=== PATIENT | male | born 1935 | race Caucasian/White ===

== ENCOUNTER 2020-04-13 13:06 | Emergency (ER) | payer MEDICARE, OTHER ==
[~2020-04-13] VITALS: Ht 172.7 cm; Wt 68.0 kg
--- OUTSIDE RECORDS SUMMARY | ~2020-04-13 | XMS | Encounter Summary ---
Demographics + + + | [address] | [address] | | | [place] [address] | + + + | Home Phone | | + + + | Preferred Language | Unknown | + + + | Marital Status | | + + + | Catholic Affiliation | 1027 | + + + | Race | Unknown | + + + | Ethnic Group | Unknown | + + + Author + + + | Author | [facility] | | | and [place] | + + + | Organization | [facility] | | | and [place] | + + + | Address | Unknown | + + + | Phone | Unavailable | + + + Support + + +---------+ + | Name | Relationship | Address | Phone | + + +---------+ + | Lilly Severe | ECON | Unknown | | + + +---------+ + Care Team Providers + +------+ + | Care Hood Maker Name | Role | Phone | + +------+ + PCP | Unavailable | + +------+ + Encounter Details +--------+ + + + + | Date | Type | Department | Care Team | Description | +--------+ + + + + | 11/12/ | Hospital | [facility] | Conversion | CORONARY ATHEROSCLER | | 2005 | Encounter | CONVERSION [address] | Transaction, | [address] | | | | [address] | Provider Unknown | | | | | [place] | [phone] | | | | | [address] | | | | | | [phone] | | | +--------+ + + + + Social History + +-------+ +--------+------+ | Tobacco Use | Types | Packs/Day | Years | Date | | | | | Used | | + +-------+ +--------+------+ | Never Assessed | | | | | + +-------+ +--------+------+ + + + | Sex Assigned at | Date Recorded | | | | + + + | Not on file | | + + + documented as of this encounter Plan of Treatment +--------+---------+ + + + | Date | Type | Specialty | Care Team | Description | +--------+---------+ + + + | 05/16/ | Office | Cardiology | Dina Butts DO | | | 2019 | Visit | | [address] | | | | | | [place] | | | | | | [address] | | | | | | | | +--------+---------+ + + + documented as of this encounter Visit Diagnoses + + | Diagnosis | + + | Coronary atherosclerosis of unspecified type of vessel, [place] or graft | + + documented in this encounter"
--- OUTSIDE RECORDS SUMMARY | ~2020-04-13 | XMS | Encounter Summary ---
Demographics + + + | [address] | [address] | | | [place] [address] | + + + | Home Phone | | + + + | Preferred Language | Unknown | + + + | Marital Status | | + + + | Congregational Affiliation | 1027 | + + + | Race | Unknown | + + + | Ethnic Group | Unknown | + + + Author + + + | Author | [facility] | | | and [place] | + + + | Organization | [facility] | | | and [place] | + + + | Address | Unknown | + + + | Phone | Unavailable | + + + Support + + +---------+ + | Name | Relationship | Address | Phone | + + +---------+ + | Lilly Masterson | ECON | Unknown | | + + +---------+ + Care Team Providers + +------+ + | Care [employer] Agriculture Teacher Name | Role | Phone | + +------+ + | Pollo Davis MD | PCP | | + +------+ + Encounter Details +--------+ + + + + | Date | Type | Department | Care Team | Description | +--------+ + + + + | 02/16/ | Orders Only | [facility] | Pollo Davis | | | 2016 | | [facility]IOLOGY [place] | MD [address] | | | | | [address] | [address] | | | | | [address] | [place] [address] | | | | | [place], [place] | [phone] | | | | | [address] | | | | | | [phone] | | | +--------+ + + + [...] | | | | | [place] | | | | | | [address] | | | | | | | | +--------+---------+ + + + documented as of this encounter Procedures + +--------+ + + + | Procedure Name | Priori | Date/Time | Associated Diagnosis | Comments | | | ty | | | | + +--------+ + + + | NM NUCLEAR STRESS | Routin | 02/17/2016 | | Results for this | | TEST (PHARMACOLOGIC | e | 4:49 PM | | procedure are in the | | - VASODILATOR) | | PDT | | results section. | + +--------+ + + + documented in this encounter Results NM Nuclear Stress Test (Vasodilator) (02/17/2016 4:49 PM PDT) + + | Specimen | + + | | + + + + + | Impressions | Performed At | + + + | 1. Normal perfusion study. No evidence of ischemia or | | | infarction. LVEF 66 % 2. Stress ECG: mildly positive for | | | Lexiscan-induced ischemia. 3. No arrhythmias detected. 4. No | | | Lexiscan induced chest pain. 5. No previous test for comparison. | | | 6. Low risk study. | | + + + + + + | Narrative | Performed At | + + + | [facility]ARD[facility] Nuclear Lexiscan-Walk Stress Test Test | | | Date: 02/17/2016 History: 80 Year old male being evaluated for | | | coronary artery disease. Rest Data: HR: 51 bpm BP: 130 /77 | | | Baseline ECG: Normal sinus rhythm. Stress Data: HR: 93 bpm BP: | | | 141/64 The patient walked on the treadmill for three minutes at 1.0 | | | mph during the test. Reaction to Lexiscan: shortness of breath | | | Stress ECG: mildly positive for Lexiscan-induced ischemia ischemia, | | | 1.[address] segment depression in leads II, III, aVF, V5, and | | | V6. Arrhythmias: none Myocardial Perfusion: Images are adequate | | | for interpretation. Small area, mild perfusion defect involving the | | | posterior basal segment on both the rest and stress images No | | | evidence of perfusion defect. SSS: 2 SRS: 4 SDS: 1 TID: 1.10 | | | Gated Images: Rest EDV: 97 mL Rest ESV: 35 mL Rest EF: 64 % Stress | | | EDV: 106 mL Stress ESV: 36 mL Stress EF: 66 % No evidence of regional | | | wall motion abnormality Procedure: 11.8 mCi of 99m Tc Myoview | | | was given intravenously for rest images. 32.2 mCi of 99m Tc Myoview | | | was given intravenously for stress images at 01:35. Effective Dose | | | Equivalent 15.2 mSv The patient received 0.4mg Lexiscan | | | intravenously. | | + + + + + | Procedure Note | + + | Dominic Greene Conversion - 06/08/2019 8:35 PM [facility] | | Lexiscan-Walk Stress Test Test Date: 02/17/2016 History:80 Year old male being evaluated | | for coronary artery disease. Rest Data:HR: 51 bpm BP: 130 /77Baseline ECG: Normal | | sinus rhythm. Stress Data:HR: 93 bpm BP: 141/64The patient walked on the treadmill for | | three minutes at 1.0 mph during the test.Reaction to Lexiscan: shortness of breathStress | | ECG: mildly positive for Lexiscan-induced ischemia ischemia, 1.[address] segment | | depression in leads II, III, aVF, V5, and V6.Arrhythmias: none Myocardial | | Perfusion:Images are adequate for interpretation.Small area, mild perfusion defect | | involving the posterior basal segment on both the rest and stress imagesNo evidence of | | perfusion defect.SSS: 2 SRS: 4 SDS: 1 TID: 1.10 Gated Images:Rest EDV: 97 mL Rest ESV: | | 35 mL Rest EF: 64 %Stress EDV: 106 mL Stress ESV: 36 mL Stress EF: 66 %No evidence of | | regional wall motion abnormality Procedure:11.8 mCi of 99m Tc Myoview was given | | intravenously for rest images.32.2 mCi of 99m Tc Myoview was given intravenously for | | stress images at 01:35.Effective Dose Equivalent 15.2 mSvThe patient received 0.4mg | | Lexiscan intravenously. IMPRESSION: 1. Normal perfusion study. No evidence of | | ischemia or infarction. LVEF 66 %2. Stress ECG: mildly positive for Lexiscan-induced | | ischemia.3. No arrhythmias detected.4. No Lexiscan induced chest pain.5. No previous | | test for comparison.6. Low risk study. Electronically signed by Prem Nichols DO on | | 02/22/2016 3:58 PM | |Myocardial Perfusion: | |Images are adequate for interpretation. | |Small area, mild perfusion defect involving the posterior basal segment on both the rest an d stress images | |No evidence of perfusion defect. | |SSS: 2 SRS: 4 SDS: 1 TID: 1.10 | | | |Gated Images: | |Rest EDV: 97 mL Rest ESV: 35 mL Rest EF: 64 % | |Stress EDV: 106 mL Stress ESV: 36 mL Stress EF: 66 % | |No evidence of regional wall motion abnormality | | | |Procedure: | |11.8 mCi of 99m Tc Myoview was given intravenously for rest images. | |32.2 mCi of 99m Tc Myoview was given intravenously for stress images at 01:35. | |Effective Dose Equivalent 15.2 mSv | |The patient received 0.4mg Lexiscan intravenously. | | | | | |IMPRESSION: | |1. Normal perfusion study. No evidence of ischemia or infarction. LVEF 66 % | |2. Stress ECG: mildly positive for Lexiscan-induced ischemia. | |3. No arrhythmias detected. | |4. No Lexiscan induced chest pain. | |5. No previous test for comparison. | |6. Low risk study. | | | | | | | | | + + documented in this encounter Visit Diagnoses Not on filedocumented in this encounter"
--- OUTSIDE RECORDS SUMMARY | ~2020-04-13 | XMS | Encounter Summary ---
Demographics + + + | Address | [address] | | | [place] [address] | + + + | Home Phone | | + + + | Preferred Language | Unknown | + + + | Marital Status | | + + + | Congregational Affiliation | 1027 | + + + | Race | Unknown | + + + | Ethnic Group | Unknown | + + + Author + + + | Author | [facility] | | | and [place] | + + + | Organization | [facility] | | | and [...] Team Providers + +------+ + | Care Combination Machine Tender Name | Role | Phone | + +------+ + PCP | Unavailable | + +------+ + Encounter Details +--------+ + + + + | Date | Type | Department | Care Team | Description | +--------+ + + + + | 08/23/ | Hospital | [facility] | Mariam Jackson MD | CHEST PAIN NOS | | 2002 - | Encounter | [facility] | [address] | | | | | [address] | [place] [address] | | | 08/28/ | | [address] [address] | [phone] | | | 2002 | | [place] | | | | | | [address] | | | | | | [phone] | | | +--------+ + + + [...] [address] | | | | | | [place] | | | | | | [address] | | | | | | | | +--------+---------+ + + + documented as of this encounter Visit Diagnoses + + | Diagnosis | + + | Chest pain, unspecified | + + documented in this encounter"
--- OUTSIDE RECORDS SUMMARY | ~2020-04-13 | XMS | Encounter Summary ---
Demographics + + + | Address | [address] | | | [place] [address] | + + + | Home Phone | | + + + | Preferred Language | Unknown | + + + | Marital Status | | + + + | Mormonism Affiliation | 1027 | + + + | Race | Unknown | + + + | Ethnic Group | Unknown | + + + Author + + + | Author | [facility] | | | and [place] | + + + | Organization | [facility] | | [...] Team Providers + +------+ + | Care Communications Consultant Name | Role | Phone | + +------+ + PCP | Unavailable | + +------+ + Encounter Details +--------+ + + + + | Date | Type | Department | Care Team | Description | +--------+ + + + + | 09/12/ | Hospital | [facility] OP | Conversion | | | 2002 | Encounter | CONVERSION [address] | Transaction, | | | | | [address] | Provider Unknown | | | | | [place], [place] | | | | | | [address] | (Fax) | | | | | [phone] | | | +--------+ + + + [...] | Dina Butts DO | | | 2020 | Visit | | [address] | | | | | | [place] | | | | | | [address] | | | | | | | | +--------+---------+ + + + documented as of this encounter Visit Diagnoses Not on filedocumented in this encounter"
--- OUTSIDE RECORDS SUMMARY | ~2020-04-13 | XMS | Encounter Summary ---
Demographics + + + | Address | [address] | | | [place] [address] | + + + | Home Phone | | + + + | Preferred Language | Unknown | + + + | Marital Status | | + + + | Anabaptist Affiliation | [id number] | + + + | Race | Unknown | + + + | Ethnic Group | Unknown | + + + Author + + + | Author | [facility] | | | and [place] | + + + | Organization | [facility] | | | [...] Team Providers + +------+ + | Care Bicycle I Assembler Name | Role | Phone | + +------+ + | Pollo Davis MD | PCP | | + +------+ + Reason for Visit + + + | Reason | Comments | + + + | New Patient | new patient | + + + Encounter Details +--------+---------+ + + + | Date | Type | Department | Care Team | Description | +--------+---------+ + + + | 11/16/ | Office | [facility] | Dina Butts DO | Coronary artery | | 2020 | Visit | CARDIOLOGY GEO | [address] | disease involving | | | | [address] | [place], [place] | [place] coronary | | | | [address] | [address] | artery of [place] | | | | [place] | | heart without angina | | | | [address] | | pectoris (Primary | | | | [phone] | | Dx); S/P CABG x 2 | +--------+---------+ + + + Social History + +-------+ +--------+------+ | Tobacco Use | Types | Packs/Day | Years | Date | | | | | Used | | + +-------+ +--------+------+ | Never Smoker | | | | | + +-------+ +--------+------+ + +---+---+---+ | Smokeless Tobacco: | | | | | Never Used | | | | + +---+---+---+ + + +---------+ + | Alcohol Use | Drinks/Week | oz/Week | Comments | + + +---------+ + | Not Currently | | | | + + +---------+ + + + + | Sex Assigned at | Date Recorded | | | | + + + | Not on file | | + + + documented as of this encounter Last Filed Vital Signs + + + + + | Vital Sign | Reading | Time Taken | Comments | + + + + + | Blood Pressure | 118/48 | 11/16/2019 9:54 AM | | | | | PST | | + + + + + | Pulse | 65 | 11/16/2019 9:54 AM | | | | | PST | | + + + + + | Temperature | - | - | | + + + + + | Respiratory Rate | - | - | | + + + + + | Oxygen Saturation | 98% | 11/16/2019 9:54 AM | | | | | PST | | + + + + + | Inhaled Oxygen | - | - | | | Concentration | | | | + + + + + | Weight | 64.9 kg (143 lb) | 11/16/2019 9:54 AM | | | | | PST | | + + + + + | Height | 172.7 cm (5' 8") | 11/16/2019 9:54 AM | | | | | PST | | + + + + + | Body Mass Index | 21.74 | 11/16/2019 9:54 AM | | | | | PST | | + + + + + documented in this encounter Progress Dina Riley DO - 11/16/2019 10:00 AM PST [facility] Cardiology Consult Note Reason for Consultation: establish care History Obtained From: patient HISTORY OF PRESENT ILLNESS: Cardiac Problem List CABGx2 in 2002 HTN HLD Mild carotid stenosis Moderate aortic stenosis Moderate right sided heart failure Non Cardiac Problem List The patient is an 84-year-old male, who presents to the Cardiology office to establish care for the above past medical histories. He had a recent echocardiogram done on 05/31/2019, w [facility] demonstrated a normal left ventricular ejection fraction with mild aortic regurgitation and moderate aortic stenosis, peak velocity was 2.9 meters per second, mean gradient was 20 mmHg. Recently, he has been doing well. His only complaint today is 5-pound unintentiona l weight loss over the past few months. He has decreased the number of times per day that kat roque eats and has been very physically active lately. He maintains his home and is able to cho p firewood. He is able to do all these activities without any chest pains or shortness of b reath. He denies any lower extremity swelling, orthopnea, PND. He denies any claudication- like symptoms. He denies any episodes of syncope or presyncope. His blood pressures appea r well controlled. He has not been on his atorvastatin for the past several months. He rep orts that he had a 3-month supply and his home medications ran out and he never wanted to ge t it refilled. He has been doing otherwise well from a cardiac standpoint. Review of Systems Constitutional: Negative for fatigue. Positive for unintentional weight loss. HENT: Negative for nosebleeds. Eyes: Negative for visual disturbance. Respiratory: Negative for cough and shortness of breath. Cardiovascular: see HPI Gastrointestinal: Negative for nausea, vomiting, abdominal pain and blood in stool. Genitourinary: Negative for hematuria or dysuria. Musculoskeletal: Negative for myalgias, back pain and arthralgias. Skin: Negative for color change. Neurological: Negative for dizziness, syncope and numbness. Hematological: Does not bruise/bleed easily. Psychiatric/Behavioral: The patient is not nervous/anxious. PAST MEDICAL & SURGICAL HISTORY Past Medical History: Diagnosis Date Angina pectoris (HCC) Arrhythmia Carotid stenosis, asymptomatic, bilateral 06/15/2019 Coronary artery disease Hyperlipidemia Hypertension goal BP (blood pressure) < 140/80 05/19/2018 Multiple food allergies Past Surgical History: Procedure Laterality Date ABDOMEN SURGERY APPENDECTOMY CARDIAC SURGERY double bypass COLONOSCOPY CORONARY ARTERY BYPASS GRAFT HERNIA REPAIR x 2, inguinal and abdominal KNEE SURGERY x2 NOSE SURGERY OTHER SURGICAL HISTORY UNLISTED PROCEDURE ARTHROSCOPY - LT. MEDICATIONS Home Medications Outpatient Encounter Medications as of 11/16/2019 Medication Sig Dispense Refill aspirin 81 MG tablet Take 81 mg by mouth daily. atorvaSTATin (LIPITOR) 20 mg tablet Take 20 mg by mouth Daily. Calcium Carb-Cholecalciferol (CALCIUM 1000 + D PO) Take 1,000 mg by mouth daily. CINNAMON PO Take 2 teaspoons by mouth daily. cyanocobalamin (VITAMIN B-12) 500 mcg tablet Take 500 mcg by mouth daily. (Patient debora gonzales differently: Take 50 mcg by mouth Daily.) isosorbide mononitrate (IMDUR) 30 mg ER tablet Take 1 tablet by mouth Daily. 90 tablet 3 loratadine (CLARITIN) 10 mg tablet Take 10 mg by mouth as needed. Magnesium 500 MG tablet Take 500 mg by mouth daily. Misc Natural Products (SA[place]) CAPS Take by mouth. (Patient taking differently: Take 1 capsule by mouth Daily.) Turmeric POWD Take by mouth. (Patient taking differently: Take 1 Dose by mouth Daily.) No facility-administered encounter medications on file as of 11/16/2019. Allergies Allergies Allergen Reactions Morphine Nausea And Vomiting FAMILY HISTORY Family History Problem Relation Age of Onset Other (see comment) Father Heart Problems Heart disease Father Other (see comment) Paternal Grandfather Heart Problems Cancer Sister Cancer Brother SOCIAL HISTORY Social History Socioeconomic History Marital status: Spouse name: Not on file Number of children: Not on file Years of education: Not on file Highest education level: Not on file Occupational History Not on file Social Needs Financial resource strain: Not on file Food insecurity: Worry: Not on file Inability: Not on file Transportation needs: Medical: Not on file Non-medical: Not on file Tobacco Use Smoking status: Never Smoker Smokeless tobacco: Never Used Substance and Sexual Activity Alcohol use: Not Currently Drug use: Never Comment: Drug use: No Sexual activity: Not on file Lifestyle Physical activity: Days per week: Not on file Minutes per session: Not on file Stress: Not on file Relationships Social connections: Talks on phone: Not on file Gets together: Not on file Attends muslim service: Not on file Active member of club or organization: Not on file Attends meetings of clubs or organizations: Not on file Relationship status: Not on file Intimate partner violence: Fear of current or ex partner: Not on file Emotionally abused: Not on file Physically abused: Not on file Forced sexual activity: Not on file Other Topics Concern Not on file Social History Narrative Not on file PHYSICAL EXAM Vital Signs: BP 118/48 | Pulse 65 | Ht 1.727 m (5' 8") | Wt 64.9 kg (143 lb) | SpO2 98% | BMI 21.74 kg/m Physical Exam GENERAL: Well developed, well nourished, in no distress. Appears approximately stated age . HEENT: Normocephalic, atraumatic. EYES: PERRL, sclerae anicteric, no xanthelsasmas NECK: No JVD, lymphadenopathy, thyromegaly, bruits. Carotid pulses are 2+ bilaterally LUNGS: Clear bilaterally, with no rales, rhonchi or wheezing noted, respirations unlabored HEART: Nondisplaced PMI, regular rate and rhythm, S1, S2 normal. Soft systolic murmur, rub s or gallops noted. ABDOMEN: Soft, nontender, no organomegaly, masses or bruits. Bowel sounds are normal in a ll 4 quadrants. EXTREMITIES: No edema. Radial pulses 2+ bilaterally. DP and PT pulses are 2+ bilaterally. SKIN: Warm and dry, capillary refill is normal, no lesions. NEUROLOGIC: Awake, alert and oriented x 3. No focal motor deficits. PSYCHIATRIC: Appropriate, affect appears normal DATA No results found for: WBC, HGB, HCT, PLTNo results found for: INR, PTT No results found for : NA, K, CL, CO2, BUN, CREA, GLUCOSE, MG, AST, ALT, DIGOXIN, BNP, TSHNo results found for: C HOL, TRIG, HDL, LDL, TSH Blood work from 07/06/2019 reviewed including total cholesterol 170, triglycerides 78, HDL 36, LDL 118, sodium 141, potassium 4.5, chloride 103, carbon dioxide 31, glucose 95, BUN 25, creatinine 1.13, calcium 9.1, AST 18, ALT 12, alkaline phosphatase 47, total bilirubin 0.4, total protein 6.6, albumin 4. Labs: 12/03: Lipids:( atorvastatin 20 mg) Triglycerides 48, cholesterol 116, HDL 36, LDL 71, VLDL 10, non-HDL cholesterol 81, ratio 2.3.. CMP:Glucose 97, sodium 143, potass ium 5, chloride 104, uric acid 5, BUN 19, creatinine 0.87, GFR 84. , Total bilirubin 0.6, direct bilirubin 0.1, indirect bilirubin 0.5, LD 155, AST 25, ALT 19, alk phos 53 albumin 4. 2Magnesium 2.1. Ferritin 228. Thyroid:TSH 1.88, free T4 1 0.08. CBC:WBC 6.5, RBC 4.9, hemoglobin 14.8, hematocrit 43.2, platelets 169 EK11/16/2019 normal sinus rhythm 65 bpm, first-degree AV block, PACs in a pattern of bige marvin, nonspecific ST-T wave abnormality. Last Echo: 05/31/19 CONCLUSIONS 1. Overall left ventricular systolic function is normal with, an EF between 55 - 60 %. 2. The right ventricle is normal in size and function. 3. There is mild aortic regurgitation. 4. There is moderate aortic stenosis present. Peak velocity 2.9 m/s, mean gradient 20mmHg. Last stress test: 02/17/16 IMPRESSION: 1. Normal perfusion study. No evidence of ischemia or infarction. LVEF 66 % 2. Stress ECG: mildly positive for Lexiscan-induced ischemia. 3. No arrhythmias detected. 4. No Lexiscan induced chest pain. 5. No previous test for comparison. 6. Low risk study. Last cath: Carotid US: 03/24. 1-15 % narrowing bilateral AAA screening: Lower extremity US: OTHERS: ASSESSMENT & PLAN 1. CAD s/p CABGx2 in 2002 2. HTN 3. HLD 4. Mild carotid stenosis 5. Moderate aortic stenosis 6. Moderate right sided heart failure -The patient is an 85-year-old male who presents to the cardiology office to establish care for the above past medical history. Recently, he has been doing well. He denies any angin al symptoms or heart failure symptoms. Recent echogram demonstrates preserved left ventricu lar function with moderate aortic stenosis. He will need yearly monitoring of his aortic va lve. - Continue ASA 81mg po daily - continue atorvastatin 20mg po daily - continue Imdur 30mg po daily - Follow up in 6 months Thank you for allowing me to participate in the care of this patient. Primary Care Physician: MD Dina Urena DO 11/17/2019 documented in this enco unter Plan of Treatment +--------+---------+ + + + | Date | Type | Specialty | Care Team | Description | +--------+---------+ + + + | 05/16/ | Office | Cardiology | Dina Butts DO | | | 2020 | Visit | | [address] | | | | | | [place] | | | | | | [id number] | | | | | | | | +--------+---------+ + + + documented as of this encounter Procedures + +--------+ + + + | Procedure Name | Priori | Date/Time | Associated Diagnosis | Comments | | | ty | | | | + +--------+ + + + | ECG 12 LEAD | Routin | 11/16/2019 | Coronary artery | Results for this | | | e | 9:58 AM | disease involving | procedure are in the | | | | PST | [place] coronary | results section. | | | | | artery of [place] | | | | | | heart without angina | | | | | | pectoris S/P CABG | | | | | | x 2 | | + +--------+ + + + documented in this encounter Results ECG 12 lead (11/16/2019 9:58 AM PST) + + + + + + | Component | Value | Ref Range | Performed | Pathologist | | | | | At | Signature | + + + + + + | VENTRICULAR | 65 | BPM | [facility] | | | RATE EKG | | | | | + + + + + + | ATRIAL RATE | 65 | BPM | [facility] | | + + + + + + | P-R | 270 | ms | [facility] | | | INTERVAL | | | | | + + + + + + | QRS | 88 | ms | [facility] | | | DURATION | | | | | + + + + + + | Q-T | 384 | ms | [facility] | | | INTERVAL | | | | | + + + + + + | Q-T | 399 | ms | [facility] | | | INTERVAL | | | | | | (CORRECTED) | | | | | + + + + + + | P WAVE AXIS | 86 | degrees | [facility] | | + + + + + + | QRS AXIS | 36 | degrees | [facility] | | + + + + + + | T AXIS | -24 | degrees | [facility] | | + + + + + + | INTERPRETAT | Sinus rhythm with 1st | | [facility] | | | ION TEXT | degree A-V block with | | | | | | Premature atrial | | | | | | complexes in a pattern | | | | | | of bigeminyST & T wave | | | | | | abnormality, consider | | | | | | inferior | | | | | | ischemiaAbnormal ECGWhen | | | | | | compared with ECG of | | | | | | 15-JUN-2019 | | | | | | 09:55,Previous ECG has | | | | | | undetermined rhythm, | | | | | | needs reviewBorderline | | | | | | criteria for Inferior | | | | | | infarct are no longer | | | | | | PresentConfirmed by VIKAS | | | | | | DINA BATRES ([id number]) on | | | | | | 11/17/2019 8:28:54 PM | | | | + + + + + + + + | Specimen | + + | | + + + + + | Narrative | Performed At | + + + | | | + + + + +---------+ + + | Performing | Address | City/State/Zipcode | Phone Number | | Organization | | | | + +---------+ + + | [facility] | | | | + +---------+ + + documented in this encounter Visit Diagnoses + + | Diagnosis | + + | Coronary artery disease involving [place] coronary artery of [place] heart without | | angina pectoris - Primary | + + | S/P CABG x 2 Postsurgical aortocoronary bypass status | + + documented in this encounter
--- OUTSIDE RECORDS SUMMARY | ~2020-04-13 | XMS | Encounter Summary ---
Demographics + + + | Address | [address] | | | [place] [address] | + + + | Home Phone | | + + + | Preferred Language | Unknown | + + + | Marital Status | | + + + | Denominational Affiliation | 1027 | + + + | Race | Unknown | + + + | Ethnic Group | Unknown | + + + Author + + + | Author | [facility] | | | and [place] | + + + | Organization | [facility] | | | [...] Team Providers + +------+ + | Care Rubber Goods Tester Water Name | Role | Phone | + +------+ + | Pollo Davis MD | PCP | | + +------+ + Encounter Details +--------+ + + + + | Date | Type | Department | Care Team | Description | +--------+ + + + + | 03/24/ | Orders Only | [facility] | Katia Mcbride | | | 2017 | | CONVERSION [address] | | | | | [address] | [address] | | | | | [place], [place] | [place] [address] | | | | | [address] | [phone] | | | | | [phone] | | | +--------+ + + + [...] [place] | | | | | | [address] | | | | | | | | +--------+---------+ + + + documented as of this encounter Procedures + +--------+ + + + | Procedure Name | Priori | Date/Time | Associated Diagnosis | Comments | | | ty | | | | + +--------+ + + + | ECHO INTERPRETATION | Routin | 03/24/2017 | | Results for this | | OF OUTSIDE FILMS | e | 4:00 PM | | procedure are in the | | | | PDT | | results section. | + +--------+ + + + documented in this encounter Results ECHO Interpretation of Outside Films (03/24/2017 4:00 PM PDT) + + | Specimen | + + | | + + + + + | Impressions | Performed At | + + + | 1. The left ventricle is normal in size, mild concentric hypertrophy | | | and normal systolic function EF 55-60%. 2. The diastolic filling | | | pattern indicates impaired relaxation consistent with mild dysfunction | | | (Grade I). 3. The right ventricle is severely enlarged with | | | moderately impaired systolic function. 4. The aortic valve is | | | severely calcified with severely restricted cups excursion and severe | | | aortic stenosis by planimetery and 2D images. Moderate by doppler | | | interrogation. 5. Mild tricuspid regurgitation with no pulmonary | | | hypertension. 6. There is no pericardial effusion. | | + + + + + + | Narrative | Performed At | + + + | Patient Name: Dain Coronado Date of : 1935 | | | Performing Physician: Sang Cruz | | | | | | INDICATIONS murmur, hx cad, cabg x2 2002 CONCLUSIONS | | | 1. The left ventricle is normal in size, mild | | | concentric hypertrophy and normal systolic function EF 55-60%. 2. The | | | diastolic filling pattern indicates impaired relaxation consistent | | | with mild dysfunction (Grade I). 3. The right ventricle is severely | | | enlarged with moderately impaired systolic function. 4. The aortic | | | valve is severely calcified with severely restricted cups excursion | | | and severe aortic stenosis by planimetery and 2D images. Moderate by | | | doppler interrogation. 5. Mild tricuspid regurgitation with no | | | pulmonary hypertension. 6. There is no pericardial effusion. | | | FINDINGS -------- ECG rhythm: Sinus rhythm. Study: A 2-dimensional | | | transthoracic echocardiogram with m-mode, spectral and color flow | | | Doppler was perfomed. Study: This was a technically adequate study. | | | Left Ventricle: Overall left ventricular systolic function is normal | | | with, an EF between 55 - 60 %. Left Ventricle: The left ventricle | | | cavity size is normal. Left Ventricle: There is mild concentric left | | | ventricular hypertrophy. Left Ventricle: The diastolic filling | | | pattern indicates impaired relaxation consistent with mild dysfunction | | | (Grade I). Right Ventricle: The right ventricle is severely | | | enlarged. Right Ventricle: The right ventricular systolic function is | | | moderately impaired. Left Atrium: The left atrium is moderately | | | dilated. Right Atrium: The right atrium is normal in size. Aortic | | | Valve: The aortic valve is severely calcified. Aortic Valve: There is | | | mild aortic regurgitation. Aortic Valve: The aortic pressure | | | half-time by doppler is 925ms. Aortic Valve: Moderate to severe | | | aortic stenosis with peak/mean pressure gradient of 20.86mmHg / | | | 11.88mmHg, the aortic valve area by continuity equation is | | | 1.1cm . Mitral Valve: There is trace mitral regurgitation. | | | Mitral Valve: Mild mitral annular calcification present. Tricuspid | | | Valve: The tricuspid valve appears structurally normal. Tricuspid | | | Valve: Mild tricuspid regurgitation present. Tricuspid Valve: There | | | is no evidence of pulmonary hypertension. Tricuspid Valve: The right | | | ventricular systolic pressure (pulmonary artery systolic pressure), as | | | measured by Doppler, is 16.64mmHg. Pulmonic Valve: Pulmonic valve | | | appears structurally normal. Pulmonic Valve: Trace pulmonic | | | regurgitation. Pericardium: There is no pericardial effusion. | | | Pericardium: No pleural effusion seen. IVC/Hepatic Veins: The | | | inferior vena cava is normal in size and collapses > 50 % with sniff, | | | indicating normal central venous pressures. Aorta: The aortic root, | | | ascending aorta are within normal dimensions. MEASUREMENTS | | | RA Area: 15.54 cm2 Ao sinus: 3.[address] | | | junct: 2.71 cm LA Major: 3.59 cm EDV(Teich): 97.80 ml | | | IVSd: 1.24 cm LVIDd: 4.60 cm LVPWd: 1.15 cm LVOT Area: | | | 3.16 cm2 LVOT Diam: 2.00 cm %FS: 39.40 % EF(Teich): 69.97 | | | % ESV(Teich): 29.36 ml LVIDs: 2.79 cm SV(Teich): 68.43 ml | | | LVEF MOD A2C: 50.21 % SV MOD A2C: 37.14 ml LVEF MOD A4C: | | | 57.98 % SV MOD A4C: 67.05 ml EF Biplane: 53.40 % LVEDV MOD | | | BP: 93.62 ml LVESV MOD BP: 43.61 ml LVEDV MOD A2C: 73.97 ml | | | LVLd A2C: 7.84 cm LVEDV MOD A4C: 115.64 ml LVLd A4C: 7.60 | | | cm LVESV MOD A2C: 36.82 ml LVLs A2C: 6.60 cm LVESV MOD A4C: | | | 48.58 ml LVLs A4C: 6.13 cm LAESV(A-L): 84.76 ml LAESV | | | Index (A-L): 46.57 ml/m2 LAAs A2C: 23.25 cm2 LAESV A-L A2C: | | | 86.09 ml LALs A2C: 5.33 cm LAAs A4C: 22.89 cm2 LAESV A-L | | | A4C: 78.23 ml LAESV MOD A4C: 65.37 ml LALs A4C: 5.69 cm | | | RAAs: 17.04 cm2 RAESV A-L: 57.02 ml RAESV MOD: 55.79 ml | | | RALs: 4.32 cm AR Dec [place]: 1.25 m/s2 AR Dec Time: 3191.21 | | | ms AR maxP.62 mmHg AR PHT: 925.45 ms AR Vmax: 4.01 | | | m/s HR: 61.81 BPM AV maxP.85 mmHg AV meanP.88 | | | mmHg AV Vmax: 2.28 m/s AV Vmean: 1.63 m/s AV VTI: 50.86 cm | | | LUIS Vmax: 1.09 cm2 LUIS (VTI): 1.08 cm2 AVAI Vmax: 0.00 | | | cm2/m2 AVAI (VTI): 0.00 cm2/m2 LVOT maxP.50 mmHg LVOT | | | meanP.20 mmHg LVSI Dopp: 96.80 ml/m2 LVSV Dopp: 55.17 | | | ml LVOT Vmax: 0.79 m/s LVOT Vmean: 0.51 m/s LVOT VTI: | | | 17.41 cm MV A Kahlil: 0.56 m/s MV DecT: 307.37 ms MV E Kahlil: | | | 0.54 m/s MV E/A Ratio: 0.96 MV PHT: 89.13 ms MVA By PHT: | | | 2.46 cm2 Septal e': 0.04 m/s Septal E/e': 11.16 Lateral e': | | | 0.06 m/s Lateral E/e': 7.98 RAP: 5 mmHg RVSP: 16.63 | | | mmHg TR maxP.63 mmHg TR Vmax: 1.70 m/s Business Account Executive: | | | DH Authenticated by: Sang Cruz Report Date/Time: 03-25-2017 | | | 19:11:08 | | + + + + + | Procedure Note | + + | Dominic Greene Conversion - 06/08/2019 6:45 PM PDT Patient Name: Jerri Coronado of | | : 1935 Performing Physician: Sang | | Ox[place] INDICATIONS------ | | -----murmur, hx cad, cabg x2 2002 CONCLUSIONS 1. The left ventricle is normal | | in size, mild concentric hypertrophy and normal systolic function EF 55-60%.2. The | | diastolic filling pattern indicates impaired relaxation consistent with mild dysfunction | | (Grade I).3. The right ventricle is severely enlarged with moderately impaired systolic | | function.4. The aortic valve is severely calcified with severely restricted cups | | excursion and severe aortic stenosis by planimetery and 2D images. Moderate by doppler | | interrogation.5. Mild tricuspid regurgitation with no pulmonary hypertension.6. There is | | no pericardial effusion. FINDINGS--------ECG rhythm: Sinus rhythm.Study: A | | 2-dimensional transthoracic echocardiogram with m-mode, spectral and color flow Doppler | | was perfomed.Study: This was a technically adequate study.Left Ventricle: Overall left | | ventricular systolic function is normal with, an EF between 55 - 60 %.Left Ventricle: | | The left ventricle cavity size is normal.Left Ventricle: There is mild concentric left | | ventricular hypertrophy.Left Ventricle: The diastolic filling pattern indicates impaired | | relaxation consistent with mild dysfunction (Grade I).Right Ventricle: The right | | ventricle is severely enlarged.Right Ventricle: The right ventricular systolic function | | is moderately impaired.Left Atrium: The left atrium is moderately dilated.Right Atrium: | | The right atrium is normal in size.Aortic Valve: The aortic valve is severely | | calcified.Aortic Valve: There is mild aortic regurgitation.Aortic Valve: The aortic | | pressure half-time by doppler is 925ms.Aortic Valve: Moderate to severe aortic stenosis | | with peak/mean pressure gradient of 20.86mmHg / 11.88mmHg, the aortic valve area by | | continuity equation is 1.1cm .Mitral Valve: There is trace mitral | | regurgitation.Mitral Valve: Mild mitral annular calcification present.Tricuspid Valve: | | The tricuspid valve appears structurally normal.Tricuspid Valve: Mild tricuspid | | regurgitation present.Tricuspid Valve: There is no evidence of pulmonary | | hypertension.Tricuspid Valve: The right ventricular systolic pressure (pulmonary artery | | systolic pressure), as measured by Doppler, is 16.64mmHg.Pulmonic Valve: Pulmonic valve | | appears structurally normal.Pulmonic Valve: Trace pulmonic regurgitation.Pericardium: | | There is no pericardial effusion.Pericardium: No pleural effusion seen.IVC/Hepatic | | Veins: The inferior vena cava is normal in size and collapses > 50 % with sniff, | | indicating normal central venous pressures.Aorta: The aortic root, ascending aorta are | | within normal dimensions. MEASUREMENTS RA Area: 15.54 cm2Ao sinus: 3.36 | | cmAo st junct: 2.71 cmLA Major: 3.59 cmEDV(Teich): 97.80 mlIVSd: 1.24 cmLVIDd: | | 4.60 cmLVPWd: 1.15 cmLVOT Area: 3.16 [id number] Diam: 2.00 cm%FS: 39.40 | | %EF(Teich): 69.97 %ESV(Teich): 29.36 mlLVIDs: 2.79 cmSV(Teich): 68.43 mlLVEF MOD | | A2C: 50.21 %SV MOD A2C: 37.14 mlLVEF MOD A4C: 57.98 %SV MOD A4C: 67.05 mlEF | | Biplane: 53.40 %LVEDV MOD BP: 93.62 mlLVESV MOD BP: 43.61 mlLVEDV MOD A2C: 73.97 | | mlLVLd A2C: 7.84 cmLVEDV MOD A4C: 115.64 mlLVLd A4C: 7.60 cmLVESV MOD A2C: | | 36.82 mlLVLs A2C: 6.60 cmLVESV MOD A4C: 48.58 mlLVLs A4C: 6.13 cmLAESV(A-L): | | 84.76 mlLAESV Index (A-L): 46.57 ml/m2LAAs A2C: 23.25 [id number] A-L A2C: 86.09 | | mlLALs A2C: 5.33 cmLAAs A4C: 22.89 [id number] A-L A4C: 78.23 mlLAESV MOD A4C: | | 65.37 mlLALs A4C: 5.69 cmRAAs: 17.04 [id number] A-L: 57.02 mlRAESV MOD: 55.79 | | mlRALs: 4.32 cmAR Dec [place]: 1.25 m/s2AR Dec Time: 3191.21 msAR maxP.62 | | mmHgAR PHT: 925.45 msAR Vmax: 4.01 m/sHR: 61.81 BPMAV maxP.85 mmHgAV | | meanP.88 mmHgAV Vmax: 2.28 m/Ralph Vmean: 1.63 m/Ralph VTI: 50.86 cmAVA Vmax: | | 1.09 cm2AVA (VTI): 1.08 [id number] Vmax: 0.00 cm2/m2AVAI (VTI): 0.00 cm2/m2LVOT | | maxP.50 mmHgLVOT meanP.20 mmHgLVSI Dopp: 96.80 ml/m2LVSV Dopp: 55.17 | | mlLVOT Vmax: 0.79 m/sLVOT Vmean: 0.51 m/sLVOT VTI: 17.41 cmMV A Kahlil: 0.56 m/sMV | | DecT: 307.37 msMV E Kahlil: 0.54 m/sMV E/A Ratio: 0.96MV PHT: 89.13 msMVA By PHT: | | 2.46 [id number] e': 0.04 m/sSeptal E/e': 11.16Lateral e': 0.06 m/sLateral E/e': | | 7.98RAP: 5 mmHgRVSP: 16.63 mmHgTR maxP.63 mmHgTR Vmax: 1.70 m/s | | Business Account Executive: JEFERSONuthenticated by: Sang Jaeger Date/Time: 03-25-2017 19:11:08 | | IMPRESSION: 1. The left ventricle is normal in size, mild concentric hypertrophy and | | normal systolic function EF 55-60%.2. The diastolic filling pattern indicates impaired | | relaxation consistent with mild dysfunction (Grade I).3. The right ventricle is severely | | enlarged with moderately impaired systolic function.4. The aortic valve is severely | | calcified with severely restricted cups excursion and severe aortic stenosis by | | planimetery and 2D images. Moderate by doppler interrogation.5. Mild tricuspid | | regurgitation with no pulmonary hypertension.6. There is no pericardial effusion. | |LVOT Area: 3.16 cm2 | |LVOT Diam: 2.00 cm | |%FS: 39.40 % | |EF(Teich): 69.97 % | |ESV(Teich): 29.36 ml | |LVIDs: 2.79 cm | |SV(Teich): 68.43 ml | |LVEF MOD A2C: 50.21 % | |SV MOD A2C: 37.14 ml | |LVEF MOD A4C: 57.98 % | |SV MOD A4C: 67.05 ml | |EF Biplane: 53.40 % | |LVEDV MOD BP: 93.62 ml | |LVESV MOD BP: 43.61 ml | |LVEDV MOD A2C: 73.97 ml | |LVLd A2C: 7.84 cm | |LVEDV MOD A4C: 115.64 ml | |LVLd A4C: 7.60 cm | |LVESV MOD A2C: 36.82 ml | |LVLs A2C: 6.60 cm | |LVESV MOD A4C: 48.58 ml | |LVLs A4C: 6.13 cm | |LAESV(A-L): 84.76 ml | |LAESV Index (A-L): 46.57 ml/m2 | |LAAs A2C: 23.25 cm2 | |LAESV A-L A2C: 86.09 ml | |LALs A2C: 5.33 cm | |LAAs A4C: 22.89 cm2 | |LAESV A-L A4C: 78.23 ml | |LAESV MOD A4C: 65.37 ml | |LALs A4C: 5.69 cm | |RAAs: 17.04 cm2 | |RAESV A-L: 57.02 ml | |RAESV MOD: 55.79 ml | |RALs: 4.32 cm | |AR Dec [place]: 1.25 m/s2 | |AR Dec Time: 3191.21 ms | |AR maxP.62 mmHg | |AR PHT: 925.45 ms | |AR Vmax: 4.01 m/s | |HR: 61.81 BPM | |AV maxP.85 mmHg | |AV meanP.88 mmHg | |AV Vmax: 2.28 m/s | |AV Vmean: 1.63 m/s | |AV VTI: 50.86 cm | |LUIS Vmax: 1.09 cm2 | |LUIS (VTI): 1.08 cm2 | |AVAI Vmax: 0.00 cm2/m2 | |AVAI (VTI): 0.00 cm2/m2 | |LVOT maxP.50 mmHg | |LVOT meanP.20 mmHg | |LVSI Dopp: 96.80 ml/m2 | |LVSV Dopp: 55.17 ml | |LVOT Vmax: 0.79 m/s | |LVOT Vmean: 0.51 m/s | |LVOT VTI: 17.41 cm | |MV A Kahlil: 0.56 m/s | |MV DecT: 307.37 ms | |MV E Kahlil: 0.54 m/s | |MV E/A Ratio: 0.96 | |MV PHT: 89.13 ms | |MVA By PHT: 2.46 cm2 | |Septal e': 0.04 m/s | |Septal E/e': 11.16 | |Lateral e': 0.06 m/s | |Lateral E/e': 7.98 | |RAP: 5 mmHg | |RVSP: 16.63 mmHg | |TR maxP.63 mmHg | |TR Vmax: 1.70 m/s | | | |Business Account Executive: KALEB | |Authenticated by: Sang Cruz | |Report Date/Time: 03-25-2017 19:11:08 | | | |IMPRESSION: | |1. The left ventricle is normal in size, mild concentric hypertrophy and normal systolic fu nction EF 55-60%. | |2. The diastolic filling pattern indicates impaired relaxation consistent with mild dysfunc tion (Grade I). | |3. The right ventricle is severely enlarged with moderately impaired systolic function. | |4. The aortic valve is severely calcified with severely restricted cups excursion and sever e aortic stenosis by planimetery and 2D images. Moderate by doppler interrogation. | |5. Mild tricuspid regurgitation with no pulmonary hypertension. | |6. There is no pericardial effusion. | + + documented in this encounter Visit Diagnoses Not on filedocumented in this encounter"
--- OUTSIDE RECORDS SUMMARY | ~2020-04-13 | XMS | Encounter Summary ---
Demographics + + + | Address | [address] | | | [place] [address] | + + + | Home Phone | | + + + | Preferred Language | Unknown | + + + | Marital Status | | + + + | Mu-Ism Affiliation | 1027 | + + + | Race | Unknown | + + + | Ethnic Group | Unknown | + + + Author + + + | Author | [facility] | | | and [place] | + + + | Organization | [facility] | | | and [place] | + + + | Address | Unknown | + + + | Phone | Unavailable | + + + Support + + +---------+ + | Name | Relationship | Address | Phone | + + +---------+ + | iLlly Masterson | ECON | Unknown | | + + +---------+ + Care Team Providers + +------+ + | Care Exchange Clerk Name | Role | Phone | + +------+ + | Pollo Davis MD | PCP | | + +------+ + Encounter Details +--------+ + + + + | Date | Type | Department | Care Team | Description | +--------+ + + + + | 11/29/ | Orders Only | [facility] | Conversion | | | 2018 | | CONVERSION [address] | Transaction, | | | | | [address] | Provider Unknown | | | | | [facility] [place] | [phone] | | | | | [address] | | | | | | [phone] | | | +--------+ + + + [...] [place] | | | | | | [id number] | | | | | | | | +--------+---------+ + + + documented as of this encounter Visit Diagnoses Not on filedocumented in this encounter"
--- OUTSIDE RECORDS SUMMARY | ~2020-04-13 | XMS | Encounter Summary ---
Demographics + + + | Address | [address] | | | [place] [address] | + + + | Home Phone | | + + + | Preferred Language | Unknown | + + + | Marital Status | | + + + | Orthodox Affiliation | 1027 | + + + | Race | Unknown | + + + | Ethnic Group | Unknown | + + + Author + + + | Author | [facility] | | | and [place] | + + + | Organization | [facility] | | [...] Team Providers + +------+ + | Care Marketing Agent Name | Role | Phone | + +------+ + | Pollo Davis MD | PCP | | + +------+ + Encounter Details +--------+ + + + + | Date | Type | Department | Care Team | Description | +--------+ + + + + | 05/31/ | Orders Only | [facility] | Katia Mcbride | | | 2019 | | [address] | | | | | [address] | [address] | | | | | [place], [place] | [place] [address] | | | | | [id number] | [phone] | | | | | [phone] | | | +--------+ + + + [...] [facility]UD | | | | | | [id number] | | | | | | | | +--------+---------+ + + + documented as of this encounter Procedures + +--------+ + + + | Procedure Name | Priori | Date/Time | Associated Diagnosis | Comments | | | ty | | | | + +--------+ + + + | ECHO INTERPRETATION | Routin | 05/31/2019 | | Results for this | | OF OUTSIDE FILMS | e | 3:43 PM | | procedure are in the | | | | PDT | | results section. | + +--------+ + + + documented in this encounter Results ECHO Interpretation of Outside Films (05/31/2019 3:43 PM PDT) + + | Specimen | + + | | + + + + + | Impressions | Performed At | + + + | 1. Overall left ventricular systolic function is normal with, an EF | | | between 55 - 60 %. 2. The right ventricle is normal in size and | | | function. 3. There is mild aortic regurgitation. 4. There is | | | moderate aortic stenosis present. Peak velocity 2.9 m/s, mean gradient | | | 20mmHg. | | + + + + + + | Narrative | Performed At | + + + | Patient Name: Dain Coronado Date of : 1935 | | | Performing Physician: Dina Butts MD | | | | | | INDICATIONS HX CAD S/P CABG X2, AORTIC STENOSIS | | | CONCLUSIONS 1. Overall left ventricular systolic | | | function is normal with, an EF between 55 - 60 %. 2. The right | | | ventricle is normal in size and function. 3. There is mild aortic | | | regurgitation. 4. There is moderate aortic stenosis present. Peak | | | velocity 2.9 m/s, mean gradient 20mmHg. FINDINGS -------- ECG | | | rhythm: Sinus rhythm. Study: A 2-dimensional transthoracic | | | echocardiogram with m-mode, spectral and color flow Doppler was | | | perfomed. Study: This was a technically adequate study. Left | | | Ventricle: Overall left ventricular systolic function is normal with, | | | an EF between 55 - 60 %. Left Ventricle: The left ventricle cavity | | | size is normal. Left Ventricle: Left ventricular wall thickness is | | | normal. Left Ventricle: The diastolic filling pattern indicates | | | impaired relaxation consistent with mild dysfunction (Grade I). Right | | | Ventricle: The right ventricle is normal in size and function. Left | | | Atrium: The left atrium is normal in size. Right Atrium: The right | | | atrium is normal in size. Aortic Valve: There is mild aortic | | | regurgitation. Aortic Valve: The aortic pressure half-time by doppler | | | is 672ms. Aortic Valve: The aortic valve is severely calcified. | | | Aortic Valve: There is moderate aortic stenosis present. Mitral | | | Valve: Normal appearing mitral valve. Mitral Valve: Mild mitral | | | regurgitation is present. Tricuspid Valve: The tricuspid valve | | | appears structurally normal. Tricuspid Valve: Mild tricuspid | | | regurgitation present. Tricuspid Valve: The right ventricular | | | systolic pressure (pulmonary artery systolic pressure), as measured by | | | Doppler, is 17.17mmHg. Pulmonic Valve: Pulmonic valve appears | | | structurally normal. Pulmonic Valve: Mild pulmonic regurgitation. | | | Pericardium: There is no pericardial effusion. IVC/Hepatic Veins: The | | | inferior vena cava is normal in size and collapses > 50 % with sniff, | | | indicating normal central venous pressures. Aorta: The aortic root, | | | ascending aorta and aortic arch are normal. Mass: No mass visualized | | | Thrombus: No clot visualized Thrombus: No vegetation visualized. | | | Septum: No ASD observed. Septum: No VSD observed. MEASUREMENTS | | | Ao asc: 3.26 cm Ao sinus: 3.[address] junct: | | | 2.67 cm IVC: 1.44 cm EDV(Teich): 95.20 ml IVSd: 0.94 cm | | | LVIDd: 4.55 cm LVPWd: 0.96 cm LVOT Area: 3.34 cm2 LVOT | | | Diam: 2.06 cm %FS: 32.33 % EF(Teich): 60.69 % ESV(Teich): | | | 37.42 ml LVIDs: 3.08 cm SV(Teich): 57.78 ml RV Major: | | | 6.43 cm RV Minor: 2.85 cm LVEF MOD A2C: 51.62 % SV MOD A2C: | | | 42.48 ml LVEF MOD A4C: 57.87 % SV MOD A4C: 57.58 ml EF | | | Biplane: 54.15 % LVEDV MOD BP: 89.69 ml LVESV MOD BP: 41.12 | | | ml LVEDV MOD A2C: 82.28 ml LVLd A2C: 8.03 cm LVEDV MOD A4C: | | | 99.51 ml LVLd A4C: 8.14 cm LVESV MOD A2C: 39.80 ml LVLs | | | A2C: 6.63 cm LVESV MOD A4C: 41.92 ml LVLs A4C: 6.33 cm | | | LAESV(A-L): 48.12 ml LAESV Index (A-L): 26.15 ml/m2 LAAs A2C: | | | 19.09 cm2 LAESV A-L A2C: 62.13 ml LALs A2C: 4.97 cm LAAs | | | A4C: 14.00 cm2 LAESV A-L A4C: 35.28 ml LALs A4C: 4.71 cm | | | RAAs: 17.51 cm2 RAESV A-L: 59.15 ml RAESV MOD: 53.80 ml | | | RALs: 4.39 cm TAPSE: 1.76 cm AR Dec Sawyer: 1.86 m/s2 AR | | | Dec Time: 2318.95 ms AR maxP.11 mmHg AR PHT: 672.49 ms | | | AR Vmax: 4.33 m/s AV maxP.55 mmHg AV meanP.16 | | | mmHg AV Vmax: 2.85 m/s AV Vmean: 2.16 m/s AV VTI: 68.66 cm | | | LUIS Vmax: 1.08 cm2 LUIS (VTI): 1.01 cm2 AVAI (Vmax): 0.00 | | | cm2/m2 AVAI (VTI): 0.00 cm2/m2 LVOT maxP.39 mmHg LVOT | | | meanP.74 mmHg LVSI Dopp: 37.94 ml/m2 LVSV Dopp: 69.81 | | | ml LVOT Vmax: 0.92 m/s LVOT Vmean: 0.60 m/s LVOT VTI: | | | 20.84 cm MV A Kahlil: 0.69 m/s MV Dec Sawyer: 1.62 m/s2 MV DecT: | | | 343.02 ms MV E Kahlil: 0.55 m/s MV E/A Ratio: 0.79 MV PHT: | | | 99.47 ms MVA By PHT: 2.21 cm2 Septal e': 0.04 m/s Septal | | | E/e': 13.79 Lateral e': 0.06 m/s Lateral E/e': 8.35 RAP: | | | 5 mmHg RVSP: 17.17 mmHg TR maxP.17 mmHg TR Vmax: | | | 1.74 m/s RV s': 0.08 m/s Home Hospice Rn: STEPHEN Authenticated by: | | | Dina Butts MD Report Date/Time: -- 31_[id number]:47 | | + + + + + | Procedure Note | + + | Dominic Greene Conversion - 06/23/2019 9:04 AM PDT Patient Name: Jerri Coronado of | | : 1935 Performing Physician: Dina Butts | | INDICATIONS H | | X CAD S/P CABG X2, AORTIC STENOSIS CONCLUSIONS 1. Overall left ventricular | | systolic function is normal with, an EF between 55 - 60 %.2. The right ventricle is | | normal in size and function.3. There is mild aortic regurgitation.4. There is moderate | | aortic stenosis present. Peak velocity 2.9 m/s, mean gradient 20mmHg. | | FINDINGS--------ECG rhythm: Sinus rhythm.Study: A 2-dimensional transthoracic | | echocardiogram with m-mode, spectral and color flow Doppler was perfomed.Study: This was | | a technically adequate study.Left Ventricle: Overall left ventricular systolic function | | is normal with, an EF between 55 - 60 %.Left Ventricle: The left ventricle cavity size | | is normal.Left Ventricle: Left ventricular wall thickness is normal.Left Ventricle: The | | diastolic filling pattern indicates impaired relaxation consistent with mild dysfunction | | (Grade I).Right Ventricle: The right ventricle is normal in size and function.Left | | Atrium: The left atrium is normal in size.Right Atrium: The right atrium is normal in | | size.Aortic Valve: There is mild aortic regurgitation.Aortic Valve: The aortic pressure | | half-time by doppler is 672ms.Aortic Valve: The aortic valve is severely | | calcified.Aortic Valve: There is moderate aortic stenosis present.Mitral Valve: Normal | | appearing mitral valve.Mitral Valve: Mild mitral regurgitation is present.Tricuspid | | Valve: The tricuspid valve appears structurally normal.Tricuspid Valve: Mild tricuspid | | regurgitation present.Tricuspid Valve: The right ventricular systolic pressure | | (pulmonary artery systolic pressure), as measured by Doppler, is 17.17mmHg.Pulmonic | | Valve: Pulmonic valve appears structurally normal.Pulmonic Valve: Mild pulmonic | | regurgitation.Pericardium: There is no pericardial effusion.IVC/Hepatic Veins: The | | inferior vena cava is normal in size and collapses > 50 % with sniff, indicating normal | | central venous pressures.Aorta: The aortic root, ascending aorta and aortic arch are | | normal.Mass: No mass visualizedThrombus: No clot visualizedThrombus: No vegetation | | visualized.Septum: No ASD observed.Septum: No VSD observed. MEASUREMENTS Ao | | asc: 3.26 cmAo sinus: 3.[address] junct: 2.67 cmIVC: 1.44 cmEDV(Teich): 95.20 | | mlIVSd: 0.94 cmLVIDd: 4.55 cmLVPWd: 0.96 cmLVOT Area: 3.34 [id number] Diam: 2.06 | | cm%FS: 32.33 %EF(Teich): 60.69 %ESV(Teich): 37.42 mlLVIDs: 3.08 cmSV(Teich): | | 57.78 mlRV Major: 6.43 cmRV Minor: 2.85 cmLVEF MOD A2C: 51.62 %SV MOD A2C: 42.48 | | mlLVEF MOD A4C: 57.87 %SV MOD A4C: 57.58 mlEF Biplane: 54.15 %LVEDV MOD BP: | | 89.69 mlLVESV MOD BP: 41.12 mlLVEDV MOD A2C: 82.28 mlLVLd A2C: 8.03 cmLVEDV MOD | | A4C: 99.51 mlLVLd A4C: 8.14 cmLVESV MOD A2C: 39.80 mlLVLs A2C: 6.63 cmLVESV MOD | | A4C: 41.92 mlLVLs A4C: 6.33 cmLAESV(A-L): 48.12 mlLAESV Index (A-L): 26.15 | | ml/m2LAAs A2C: 19.09 [id number] A-L A2C: 62.13 mlLALs A2C: 4.97 cmLAAs A4C: 14.00 | | [id number] A-L A4C: 35.28 mlLALs A4C: 4.71 cmRAAs: 17.51 [id number] A-L: 59.15 | | mlRAESV MOD: 53.80 mlRALs: 4.39 cmTAPSE: 1.76 cmAR Dec Sawyer: 1.86 m/s2AR Dec | | Time: 2318.95 msAR maxP.11 mmHgAR PHT: 672.49 msAR Vmax: 4.33 m/Ralph maxPG: | | 32.55 mmHgAV meanP.16 mmHgAV Vmax: 2.85 m/Ralph Vmean: 2.16 m/Ralph VTI: | | 68.66 cmAVA Vmax: 1.08 cm2AVA (VTI): 1.01 [id number] (Vmax): 0.00 cm2/m2AVAI (VTI): | | 0.00 cm2/m2LVOT maxP.39 mmHgLVOT meanP.74 mmHgLVSI Dopp: 37.94 ml/m2LVSV | | Dopp: 69.81 mlLVOT Vmax: 0.92 m/sLVOT Vmean: 0.60 m/sLVOT VTI: 20.84 cmMV A Kahlil: | | 0.69 m/sMV Dec Sawyer: 1.62 m/s2MV DecT: 343.02 msMV E Kahlil: 0.55 m/sMV E/A | | Ratio: 0.79MV PHT: 99.47 msMVA By PHT: 2.21 [id number] e': 0.04 m/sSeptal E/e': | | 13.79Lateral e': 0.06 m/sLateral E/e': 8.35RAP: 5 mmHgRVSP: 17.17 mmHgTR maxPG: | | 12.17 mmHgTR Vmax: 1.74 m/sRV s': 0.08 m/s Home Hospice Rn: [id number] by: | | Dina Butts MDReport Date/Time: -- [id number]:47 IMPRESSION: 1. Overall left | | ventricular systolic function is normal with, an EF between 55 - 60 %.2. The right | | ventricle is normal in size and function.3. There is mild aortic regurgitation.4. There | | is moderate aortic stenosis present. Peak velocity 2.9 m/s, mean gradient 20mmHg. | | | |Ao asc: 3.26 cm | |Ao sinus: 3.60 cm | |Ao st junct: 2.67 cm | |IVC: 1.44 cm | |EDV(Teich): 95.20 ml | |IVSd: 0.94 cm | |LVIDd: 4.55 cm | |LVPWd: 0.96 cm | |LVOT Area: 3.34 cm2 | |LVOT Diam: 2.06 cm | |%FS: 32.33 % | |EF(Teich): 60.69 % | |ESV(Teich): 37.42 ml | |LVIDs: 3.08 cm | |SV(Teich): 57.78 ml | |RV Major: 6.43 cm | |RV Minor: 2.85 cm | |LVEF MOD A2C: 51.62 % | |SV MOD A2C: 42.48 ml | |LVEF MOD A4C: 57.87 % | |SV MOD A4C: 57.58 ml | |EF Biplane: 54.15 % | |LVEDV MOD BP: 89.69 ml | |LVESV MOD BP: 41.12 ml | |LVEDV MOD A2C: 82.28 ml | |LVLd A2C: 8.03 cm | |LVEDV MOD A4C: 99.51 ml | |LVLd A4C: 8.14 cm | |LVESV MOD A2C: 39.80 ml | |LVLs A2C: 6.63 cm | |LVESV MOD A4C: 41.92 ml | |LVLs A4C: 6.33 cm | |LAESV(A-L): 48.12 ml | |LAESV Index (A-L): 26.15 ml/m2 | |LAAs A2C: 19.09 cm2 | |LAESV A-L A2C: 62.13 ml | |LALs A2C: 4.97 cm | |LAAs A4C: 14.00 cm2 | |LAESV A-L A4C: 35.28 ml | |LALs A4C: 4.71 cm | |RAAs: 17.51 cm2 | |RAESV A-L: 59.15 ml | |RAESV MOD: 53.80 ml | |RALs: 4.39 cm | |TAPSE: 1.76 cm | |AR Dec Sawyer: 1.86 m/s2 | |AR Dec Time: 2318.95 ms | |AR maxP.11 mmHg | |AR PHT: 672.49 ms | |AR Vmax: 4.33 m/s | |AV maxP.55 mmHg | |AV meanP.16 mmHg | |AV Vmax: 2.85 m/s | |AV Vmean: 2.16 m/s | |AV VTI: 68.66 cm | |LUIS Vmax: 1.08 cm2 | |LUIS (VTI): 1.01 cm2 | |AVAI (Vmax): 0.00 cm2/m2 | |AVAI (VTI): 0.00 cm2/m2 | |LVOT maxP.39 mmHg | |LVOT meanP.74 mmHg | |LVSI Dopp: 37.94 ml/m2 | |LVSV Dopp: 69.81 ml | |LVOT Vmax: 0.92 m/s | |LVOT Vmean: 0.60 m/s | |LVOT VTI: 20.84 cm | |MV A Kahlil: 0.69 m/s | |MV Dec Sawyer: 1.62 m/s2 | |MV DecT: 343.02 ms | |MV E Kahlil: 0.55 m/s | |MV E/A Ratio: 0.79 | |MV PHT: 99.47 ms | |MVA By PHT: 2.21 cm2 | |Septal e': 0.04 m/s | |Septal E/e': 13.79 | |Lateral e': 0.06 m/s | |Lateral E/e': 8.35 | |RAP: 5 mmHg | |RVSP: 17.17 mmHg | |TR maxP.17 mmHg | |TR Vmax: 1.74 m/s | |RV s': 0.08 m/s | | | |Home Hospice Rn: DBS | |Authenticated by: Dina Butts MD | |Report Date/Time: -- [id number]:47 | | | |IMPRESSION: | |1. Overall left ventricular systolic function is normal with, an EF between 55 - 60 %. | |2. The right ventricle is normal in size and function. | |3. There is mild aortic regurgitation. | |4. There is moderate aortic stenosis present. Peak velocity 2.9 m/s, mean gradient 20mmHg. | + + documented in this encounter Visit Diagnoses Not on filedocumented in this encounter"
--- OUTSIDE RECORDS SUMMARY | ~2020-04-13 | XMS | Encounter Summary ---
Demographics + + + | Address | [address] | | | [place] [address] | + + + | Home Phone | | + + + | Preferred Language | Unknown | + + + | Marital Status | | + + + | Confucianist Affiliation | 1027 | + + + | Race | Unknown | + + + | Ethnic Group | Unknown | + + + Author + + + | Author | [facility] | | | and [place] | + + + | Organization | [facility] | | [...] Team Providers + +------+ + | Care Process Excellence Manager Name | Role | Phone | + +------+ + | Pollo Davis MD | PCP | | + +------+ + Reason for Referral Diagnostic/Screening (Routine) +--------+--------+ + + + + | Status | Reason | Specialty | Diagnoses / | Referred By | Referred To | | | | | Procedures | Contact | Contact | +--------+--------+ + + + + | Closed | | Radiology | Diagnoses | Rae, | | | | | | Carotid | Katia Joshi | | | | | | stenosis, | TEACHING PASTOR [address] | | | | | | asymptomatic | [address] | | | | | | , bilateral | [place] | | | | | | Procedures | [facility] | | | | | | VAS Carotid | [address] | | | | | | Duplex | Phone: | | | | | | Limited | [phone] | | | | | | | Fax: | | | | | | | [phone] | | +--------+--------+ + + + + Diagnostic/Screening (Routine) + +--------+ + + + + | Status | Reason | Specialty | Diagnoses / | Referred By | Referred To | | | | | Procedures | Contact | Contact | + +--------+ + + + + | Authorized | | Radiology | Diagnoses | Rae, | [facility] | | | | | Coronary | Katia Joshi, | [address] | | | | | artery | TE[address]ING PASTOR [address] | | | | | disease | [address] | [place], [place] | | | | | involving | [place] | [address] | | | | | [place] | [place], [place] | Phone: | | | | | coronary | [address] | [phone] | | | | | artery of | Phone: | Fax: | | | | | [place] heart | [phone] | [phone] | | | | | without | Fax: | | | | | | angina | [phone] | | | | | | pectoris | | | | | | | S/P CABG x 2 | | | | | | | Moderate | | | | | | | aortic | | | | | | | stenosis | | | | | | | Chronic | | | | | | | right-sided | | | | | | | heart | | | | | | | failure | | | | | | | ([facility]) | | | | | | | Procedures | | | | | | | ECHO | | | | | | | Complete | | | + +--------+ + + + + Reason for Visit + + + | Reason | Comments | + + + | Follow-up | Echo/Annual | + + + Encounter Details +--------+---------+ + + + | Date | Type | Department | Care Team | Description | +--------+---------+ + + + | 06/15/ | Office | [facility] | Katia Mcbride | Coronary artery | | 2019 | Visit | CARDIOLOGY GE[place] | [address] | disease involving | | | | [address] | [address] [place] [address] | [place] coronary | | | | [address] | [place] [address] | artery of [place] | | | | [place], [place] | [phone] | heart without angina | | | | [address] | | pectoris (Primary | | | | [phone] | | Dx); S/P CABG x 2; | | | | | | Moderate aortic | | | | | | stenosis; Chronic | | | | | | right-sided heart | | | | | | failure (HCC); | | | | | | Hypertension goal BP | | | | | | (blood pressure) < | | | | | | 140/80; Mixed | | | | | | hyperlipidemia; | | | | | | Carotid stenosis, | | | | | | asymptomatic, | | | | | | bilateral; Dyspnea | | | | | | on exertion | +--------+---------+ + + + Social History [...] + + + | Blood Pressure | 118/58 | 06/15/2019 9:48 AM | | | | | PDT | | + + + + + | Pulse | 62 | 06/15/2019 9:48 AM | | | | | PDT | | + + + + + | Temperature | - | - | | + + + + + | Respiratory Rate | - | - | | + + + + + | Oxygen Saturation | 99% | 06/15/2019 9:48 AM | | | | | PDT | | + + + + + | Inhaled Oxygen | - | - | | | Concentration | | | | + + + + + | Weight | 67.1 kg (148 lb) | 06/15/2019 9:48 AM | | | | | PDT | | + + + + + | Height | 172.7 cm (5' 8") | 06/15/2019 9:48 AM | | | | | PDT | | + + + + + | Body Mass Index | 22.5 | 06/15/2019 9:48 AM | | | | | PDT | | + + + + + documented in this encounter Patient Instructions Patient Instructions Katia Mcbride FNP - 06/15/2019 10:00 AM PDTI have ordered you fasting labs to be done at [facility], and see Dr. Davis first to see if wants any other l abs done at the same time. I also ordered you an Echo and carotid ultra sound [facility] I will have you establish care with Dr. Butts in November so she can be your primary cardiol ogist , and you will see me after that I made no changes to medications , but stop Vitamin E documented in this encounter Progress Notes Katia Mcbride FNP - 06/15/2019 10:00 AM PDTFormatting of this note might be differe nt from the original. Date of visit: 06/15/2019 Primary Care Physician: Pollo Davis MD CHIEF COMPLAINT: Chief Complaint Patient presents with Follow-up Echo/Annual HISTORY OF PRESENT ILLNESS: Mr. Dain Coronado is a 84-year-old man who is here for follow-up on the results of his echo, and lipids and CMP He has a history of two-vessel coronary artery disease with CABG 2 done in 2002, hypert ension, hyperlipidemia, mild carotid stenosis , moderate aortic calcific aortic stenosis , m oderate right sided heart failure, His current and previous testing and procedures are detailed below. He reports today that he continues to be very active with projects , and tasks around his house, and trying to be better at staying well-hydrated, and pacing himself, but notices he is more symptomatic if over does it. He notice he feels winded when walking up stairs or if pushes himself too hard , and will also feel palpitations at the same time. He reports he otherwise feels well , and denies any chest pain, edema, dizziness, or syn cope. He also denies any signs or symptoms of stroke or transient ischemic attack. He also denies any hospitalization , surgery , or illness since last seen. REVIEW OF SYSTEMS: Negative except for pertinent items noted in HPI. Constitutional: Denies fatigue or unexplained weight loss. Appetite is good. Weight is do wn 5 pounds. Denies night sweats fevers or chills HENT: Denies nosebleeds. Severe hearing loss, hearing aids . Denies dysphagia Eyes: Denies visual disturbance or double vision. Denies history of cataracts or glaucoma Respiratory:Reports dyspnea with more extreme exertion, or if going up stairs or a hill. D enies cough Denies hemoptysis or excessive sputum production Cardiovascular: Reports Daily Palpitations, worse with exertion . Previous chest pain n ow resolved with Imdur. Negative for leg swelling. Gastrointestinal: history of GERD. Denies nausea, vomiting, abdominal pain and blood in st ool. Genitourinary: Negative for hematuria. Denies history of benign prostatic hypertrophy Musculoskeletal: Reports occasional joint pain and stiffness, transient. Denies myalgias, b ack pain. Skin: Denies for color change. Denies rash or lesions Neurological: Denies history of stroke/Transient ischemic attack .Denies dizziness, syncope and numbness. Denies focal motor or sensory deficits Hematological: Does not bruise/bleed easily. Denies history of cancer Endocrine: Denies diabetes or thyroid disease. Denies excessive thirst or hunger. Psychiatric/Behavioral:3 denies any history of depression or anxiety or other psychiatric i llness. Vaccines:not Current on flu vaccine. Current on pneumonia vaccine. Habits: Denies history of smoking. Denies EtOH use. Denies recreational or illicit drug u se. Exercises Vigorously with walking, hiking, horseback riding, fly fishing and tolerates with out chest pain or CASTILLO. and lives alone, but near family. Lives in [place]. [place] his own log cabin. 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 Calcium Carb-Cholecalciferol (CALCIUM 1000 + D PO) Take 1,000 mg by mouth daily. cholecalciferol (CHOLECALCIFEROL) 1000 units TABS Take 1,000 Units by mouth daily. CINNAMON PO Take 2 teaspoons by mouth daily. cyanocobalamin (VITAMIN B-12) 500 mcg tablet Take 500 mcg by mouth daily. (Patient debora gonzales differently: Take 50 mcg by mouth Daily.) isosorbide mononitrate (IMDUR) 30 mg ER tablet Take 1 tablet by mouth daily. 30 tablet 5 loratadine (CLARITIN) 10 mg tablet Take 10 mg by mouth as needed. Magnesium 500 MG tablet Take 500 mg by mouth daily. Misc Natural Products (SAW PALMETTO) CAPS Take by mouth. (Patient taking differently: Take 1 capsule by mouth Daily.) tocopherol (VITAMIN E) 100 units capsule Take 100 Units by mouth Daily. Turmeric POWD Take by mouth. (Patient taking differently: Take 1 Dose by mouth Daily.) No facility-administered medications prior to visit. PHYSICAL EXAM: Wt Readings from Last 3 Encounters: 06/15/19 67.1 kg (148 lb) Temp Readings from Last 3 Encounters: No data found for Temp BP Readings from Last 3 Encounters: 06/15/19 118/58 Pulse Readings from Last 3 Encounters: 06/15/19 62 V/S: 05/19/2018: Wt. 146 lb. BP: 118/48. HR 63 V/S: 11/29/2017: Wt. 151 lb. BP: 114/50. HR 66 GENERAL: Well developed, well nourished, in no distress. Appears approximately stated age . HEENT: Normocephalic, atraumatic. EYES: PERRL, EOM normal. MOUTH: Oral mucosae moist, dentition adequate, no lesions noted NECK: Soft right sided carotid murmur , No JVD, lymphadenopathy, thyromegaly, bruits. C arotid pulses are 2+ bilaterally LUNGS: Clear bilaterally, with no rales, rhonchi or wheezing noted, respirations unlabored HEART: 3/6 murmur RUSB pansystolic Nondisplaced PMI, regular rate and rhythm, S1, S2 barbara l. No rubs or gallops noted.Sternotomy healed, no crepitus. ABDOMEN: Soft, nontender, no organomegaly, masses or bruits. Bowel sounds are normal in a ll 4 quadrants. The abdominal aortic pulsation is not palpable. EXTREMITIES: No edema. Radial pulses 2+ bilaterally. Femoral pulses are 2+ bilaterally wi thout bruits. DP and PT pulses are 2+ bilaterally. No clubbing.Left leg donor site well he aled. SKIN: Warm and dry, capillary refill is normal, no lesions. NEUROLOGIC: Awake, alert and oriented x 3. No focal motor or sensory deficits. PSYCHIATRIC: Appropriate, affect appears normal DATA: Blood tests: No results found for: WBC, RBC, HGB, HCT, PLT No results found for: NA, K, CL, CO2, ANIONGAP, GLUF, BUN, CREATININE, BCR, EGFR No results found for: CHOL, TRIG, LDL, LDL, GLUF No results found for: BNP, TSH, CRP No results found for: TOTEPI CARDIAC PROCEDURES/IMAGING Hx CAB08/24/2003, CABG*2 (GÓMEZ to LAD, SVG to ramus). Last Cath, 08/23/2003: 70-80% distal left main, 40% prox-LAD, large ramus with "hazy" osteal lesion, LCx modest, large RCA free of disease. LVEF 55-60%, no segmental WMA, no MR. Last Stress Test, 02/17/2016: Lexiscan, perfusion images normal, LVEF 66%, ECG showing mild L exiscan induced ischemic changes. VASCULAR PROCEDURES/IMAGING Carotid ultrasound 03/24. 1-15 % narrowing bilateral ECHO: Last Echo:05/31/2019: SR.TAS. EF 55-60%.LV normal in size and function Mild diastolic dysfun ction , grade I . RV normal in size and function. Normal size atrium, mild AI, aortic pressu re half-time by doppler is 672ms. severely calcified. Moderate aortic stenosis , 1.01 cm2, AV max/mean: 32.55 mmHg/ 20.16 mmHg. Mild MR. Mild TR. No pulmonary hypertension , RVSP 17 .17 mmHg . Mild PI. No clot, no mass, No ASD. Echo: 04/04/2018: Sinus rhythm. Technically adequate study. EF 55-60 percent. LV normal i n size and thickness. Mild diastolic dysfunction, grade 1. RV normal in size and function. Mild left atrial enlargement, RA normal in size. Aortic valve moderately thickened, moder ately calcified, mild aortic regurgitation, aortic pressure half-time by doppler is 979 ms. Moderate aortic stenosis with peak/mean pressure gradient of 28.61 mmHg / 16.25 mmHg, the a ortic valve area by continuity equation is 1.4cm. Mild MR, moderate MAC. Mild TR. N o pulmonary hypertension, RVSP 20.14 mmHg area trace WA. No pericardial or pleural effusion . IVC WNL, CVP WNL. Aortic root, ascending aorta, and aortic arch are normal. No mass,no clot Echo: 03/24/2017: EF of 55-60 % . mild diastolic dysfunction. Mild LVH severe RVE with mild to moderate impaired systolic function. LAE normal sized right atria. aortic valve severely calcified , moderate to severe aortic stenosis ,peak/mean pressure gradient of 20.8 6 mmHg / 11.88 mmHg, the aortic valve area by continuity equation is 1.1cm., mild aort ic regurgitation. trace MR. trace TR. no evidence of pulmonary hypertension a RVSP 16.64 m mHg. aortic root, ascending aorta are within normal dimensions EKG/EVENT MONITOR ECG, 02/17/2016: NSR. EK01/07: Sinus rhythm with occasional PVC's: Rate 65 bpm, WA 196 ms, QRS 94 ms, QTC 420 ms EK2016: Sinus bradycardia, first-degree AV block, PAC's. Rate 57 bpm, WA 216 ms, QRS 98 ms, QTC 408 ms (reviewed by me personally in the office today, and similar to EKG don e in December 2016 except for increased PAC's and WA interval is also slightly increased) EK05/19/2018: Sinus rhythm with occasional PAC, first degree AV block. Rate 63 bpm, WA 20 6 ms, QRS 98 ms, QTC 419 ms, tracing personally reviewed by me, when compared to EKG of May, similar morphology, but PAC's less frequent, and WA interval is decreased slightly EK06/15/2019: Sinus rhythm with occasional PAC, first degree AV block. Rate 62 bpm, WA 2 36 ms, QRS 94 ms, QTC 414 ms, tracing personally reviewed by me, when compared to EKG of 2017, similar morphology,and WA interval increased LABS: Lab, 06/02/2016: Lipids: T Chol: 146, LDL-Chol: 93, HDL-Chol: 40, Tri, CPK: 269, Liver enzymes NML, K: 4.6, BUN/Cr: 19/1.1 (GFR 63), glu: 100 Labs: 05/27:LIPIDS: Cholesterol 105, triglycerides 43, HDL 33.5, LDL 63, VLDL 9, rati o 3.1, non-HDL cholesterol 72. CMP: Sodium 139, potassium 4.4, chloride 104 and glucose 100 , BUN 22, creatinine 1, GFR 72, AST 29, ALT 34, alk phos 54, total bilirubin 0.7.CBC: WBC 5.3, hemoglobin 13.9, hematocrit 41, platelets 153 Labs: 12/03: Lipids:( atorvastatin 20 mg) Triglycerides 48, cholesterol 116, HDL 36, LDL 71, VLDL 10, non-HDL cholesterol 81, ratio 2.3.. CMP: Glucose 97, sodium 143, potassium 5, chloride 104, uric acid 5, BUN 19, creatinine 0.87, GFR 84. , Total bilirubin 0.6, dire ct bilirubin 0.1, indirect bilirubin 0.5, LD 155, AST 25, ALT 19, alk phos 53 albumin 4.2 Ma gnesium 2.1. Ferritin 228. Thyroid: TSH 1.88, free T4 1 0.08. CBC: WBC 6.5, RBC 4.9, hemo globin 14.8, hematocrit 43.2, platelets 169 ASSESSMENT & PLAN: He was here to follow up on his Echo, and for annual Exam He has problems as detailed below . His Echo performed in May reported normal EF 55-60 %, RV normal in size and function , mild AI, and moderate aortic stenosis which has increased slightly since last year , and no w 1.01 cm2, , mild MR, Mild TR, and no pulmonary hypertension. I reviewed the tests results in detail with him, and discussed that with progression in his disease, and slightly more symptomatic, and louder murmur, that I would like to repeat his Echo in 6 months, and also update his carotid US, as bruits also louder today. I also counseled him to avoid heavy lifting , and straining himself , with increasing sten osis. I made no changes to cardiac medications today, and should continue ASA 81 mg, and Imdur 3 0 mg daily, and not a candidate for beta bethany due to low heart rate . I will have him establish care with Dr. Butts as primary manager materials management, and he can get his Echo and carotid US done in October, and see her in November. I assured him that I would continue to see him after that, but he needs primary cardiologi st as well, especially if needing future interventions. 1. Coronary artery disease involving [place] coronary artery of [place] heart without angina pectoris 2. S/P CABG x 2 3. Moderate aortic stenosis 4. Chronic right-sided heart failure (HCC) 5. Hypertension goal BP (blood pressure) < 140/80 6. Mixed hyperlipidemia 7. Carotid stenosis, asymptomatic, bilateral 8. Dyspnea on exertion Orders Placed This Encounter Procedures VAS Carotid Duplex Limited Comprehensive Metabolic Panel Lipid Panel ECG 12 lead ECHO Complete The following portions of the patient's history were personally reviewed by me and updated as appropriate: EKG tracings, other specialty provider and PCP notes,any Hospital admission and discharge summaries, any ER records , current and previous cardiac testing and procedure reports and d star, medication bottles brought to visit today personally reviewed by me. Allergies, current medications.labs Family history, past medical history, past social history, past surgical history. Problem list. Mariana BURTON [facility] Cardiology 06/15/2019 Adoni altman in this encounter Plan of Treatment +--------+---------+ + + + | Date | Type | Specialty | Care Team | Description | +--------+---------+ + + + | 05/16/ | Office | Cardiology | Dina uBtts DO | | | 2019 | Visit | | [address] | | | | | | [place] | | | | | | [address] | | | | | | | | +--------+---------+ + + + + + +--------+ + + | Name | Type | Priori | Associated Diagnoses | Order Schedule | | | | ty | | | + + +--------+ + + | ECHO Complete | Echocardiog | Routin | Coronary artery | Expected: | | | rach | e | disease involving | 10/18/2019, Expires: | | | | | [place] coronary | 06/15/2020 | | | | | artery of [place] | | | | | | heart without angina | | | | | | pectoris S/P CABG | | | | | | x 2 Moderate aortic | | | | | | stenosis Chronic | | | | | | right-sided heart | | | | | | failure (HCC) | | + + +--------+ + + | VAS Carotid Duplex | Imaging | Routin | Carotid stenosis, | Expected: | | Limited | | e | asymptomatic, | 10/18/2019, Expires: | | | | | bilateral | 06/15/2020 | + + +--------+ + + | Comprehensive | Lab | Routin | Hypertension goal | Expected: | | Metabolic Panel | | e | BP (blood pressure) | 06/15/2019, Expires: | | | | | < 140/80 Mixed | 06/15/2020 | | | | | hyperlipidemia | | + + +--------+ + + | Lipid Panel | Lab | Routin | Mixed | Expected: | | | | e | hyperlipidemia | 06/15/2019, Expires: | | | | | | 06/15/2020 | + + +--------+ + + documented as of this encounter Procedures + +--------+ + + + | Procedure Name | Priori | Date/Time | Associated Diagnosis | Comments | | | ty | | | | + +--------+ + + + | ECG 12 LEAD | Routin | 06/15/2019 | Coronary artery | Results for this | | | e | 9:55 AM | disease involving | procedure are in the | | | | PDT | [place] coronary | results section. | | | | | artery of [place] | | | | | | heart without angina | | | | | | pectoris S/P CABG | | | | | | x 2 | | + +--------+ + + + documented in this encounter Results ECG 12 lead (06/15/2019 9:55 AM PDT) + + + + + + | Component | Value | Ref Range | Performed | Pathologist | | | | | At | Signature | + + + + + + | VENTRICULAR | 62 | BPM | [facility] | | | RATE EKG | | | | | + + + + + + | ATRIAL RATE | 62 | BPM | [facility] | | + + + + + + | P-R | 236 | ms | [facility] | | | INTERVAL | | | | | + + + + + + | QRS | 94 | ms | [facility] | | | DURATION | | | | | + + + + + + | Q-T | 408 | ms | [facility] | | | INTERVAL | | | | | + + + + + + | Q-T | 414 | ms | [facility] | | | INTERVAL | | | | | | (CORRECTED) | | | | | + + + + + + | P WAVE AXIS | 60 | degrees | [facility] | | + + + + + + | QRS AXIS | 0 | degrees | [facility] | | + + + + + + | T AXIS | -21 | degrees | [facility] | | + + + + + + | INTERPRETAT | Please refer to | | [facility] | | | ION TEXT | Providers office visit | | | | | | note for Providers | | | | | | Interpretation.Confirmed | | | | | | by [facility] [place] Read Only, | | | | | | [facility] Richard ([id number]), | | | | | | web content editor Arnaldo Sorto | | | | | | ([id number]) on 06/15/2019 | | | | | | 10:20:09 AM | | | | + + + [...] + + | Coronary artery disease involving [place] coronary artery of [place] heart without | | angina pectoris - Primary | + + | S/P CABG x 2 Postsurgical aortocoronary bypass status | + + | Moderate aortic stenosis Aortic valve disorders | + + | Chronic right-sided heart failure (HCC) Congestive heart failure, unspecified | + + | Hypertension goal BP (blood pressure) < 140/80 Unspecified essential hypertension | + + | Mixed hyperlipidemia | + + | Carotid stenosis, asymptomatic, bilateral | + + | Dyspnea on exertion Other dyspnea and respiratory abnormality | + + documented in this encounter
--- OUTSIDE RECORDS SUMMARY | ~2020-04-13 | XMS | Encounter Summary ---
Demographics + + + | Address | [address] | | | [place] [address] | + + + | Home Phone | | + + + | Preferred Language | Unknown | + + + | Marital Status | | + + + | Religion Affiliation | 1027 | + + + [...] Team Providers + +------+ + | Care Motel Operator Name | Role | Phone | + +------+ + | Pollo Davis MD | PCP | | + +------+ + Encounter Details +--------+ + + + + | Date | Type | Department | Care Team | Description | +--------+ + + + + | 01/07/ | Orders Only | [facility] | Conversion | | | 2017 | | CONVERSION DEP [address] | Transaction, | | | | | [address] | Provider Unknown | | | | | [facility] [place] | [phone] | | | | | [address] | | | | | | [phone] | | | +--------+ + + + [...] [place] | | | | | | [id number] | | | | | | | | +--------+---------+ + + + documented as of this encounter Visit Diagnoses Not on filedocumented in this encounter"
--- OUTSIDE RECORDS SUMMARY | ~2020-04-13 | XMS | Encounter Summary ---
Demographics + + + | Address | [address] | | | [place] [address] | + + + | Home Phone | | + + + | Preferred Language | Unknown | + + + | Marital Status | | + + + | Christian Affiliation | 1027 | + + + | Race | Unknown | + + + | Ethnic Group | Unknown | + + + Author + + + | Author | [facility] | | | and [place] | + + + | Organization | [facility] | | [...] Team Providers + +------+ + | Care Restaurant Hostess Name | Role | Phone | + +------+ + | Pollo Davis MD | PCP | | + +------+ + Encounter Details +--------+ + + + + | Date | Type | Department | Care Team | Description | +--------+ + + + + | 05/27/ | Orders Only | [facility] | Conversion | | | 2017 | | CONVERSION [address] | Transaction, | | | | | [address] | Provider Unknown | | | | | [facility] [place] | [phone] | | | | | [address] | | | | | | [phone] | | | +--------+ + + + [...] [place] | | | | | | [address] | | | | | | | | +--------+---------+ + + + documented as of this encounter Visit Diagnoses Not on filedocumented in this encounter"
--- OUTSIDE RECORDS SUMMARY | ~2020-04-13 | XMS | Encounter Summary ---
Demographics + + + | Address | [address] | | | [place] [address] | + + + | Home Phone | | + + + | Preferred Language | Unknown | + + + | Marital Status | | + + + | Druze Affiliation | 1027 | + + + | Race | Unknown | + + + | Ethnic Group | Unknown | + + + Author + + + | Author | [facility] | | | and [place] | + + + | Organization | [facility] | | | and [...] Team Providers + +------+ + | Care City Constable Name | Role | Phone | + +------+ + | Pollo Davis MD | PCP | | + +------+ + Encounter Details +--------+ + + + + | Date | Type | Department | Care Team | Description | +--------+ + + + + | 02/14/ | Orders Only | [facility] | Katia Mcbride | | | 2019 | | CARDIOLOGY GEO | [place], [address] | | | | | [address] | [address] | | | | | [address] | [place] [address] | | | | | [place] | [phone] | | | | | [address] | | | | | | [phone] | | | +--------+ + + + [...] | | | | | | [place] | | | | | | [address] | | | | | | | | +--------+---------+ + + + documented as of this encounter Visit Diagnoses Not on filedocumented in this encounter"
--- OUTSIDE RECORDS SUMMARY | ~2020-04-13 | XMS | Encounter Summary ---
Demographics + + + | Address | [address] | | | [place] [address] | + + + | Home Phone | | + + + | Preferred Language | Unknown | + + + | Marital Status | | + + + | Jainism Affiliation | 1027 | + + + | Race | Unknown | + + + | Ethnic Group | Unknown | + + + Author + + + | Author | [facility] | | | and [place] | + + + | Organization | [facility] | | | and [...] Team Providers + +------+ + | Care Roving Tester Laboratory Name | Role | Phone | + +------+ + | Pollo Davis MD | PCP | | + +------+ + Encounter Details +--------+ + + + + | Date | Type | Department | Care Team | Description | +--------+ + + + + | 05/19/ | Orders Only | [facility] | Conversion | | | 2018 | | CONVERSION DEP [address] | Transaction, | | | | | [address] | Provider Unknown | | | | | [facility] [place] | [phone] | | | | | [address] | | | | | | [phone] | | | +--------+ + + + [...] [place] | | | | | | [phone] | | | | | | | | +--------+---------+ + + + documented as of this encounter Visit Diagnoses Not on filedocumented in this encounter"
--- OUTSIDE RECORDS SUMMARY | ~2020-04-13 | XMS | Clinical Summary ---
Demographics + + + | Address | [address] | | | [place] [address] | + + + | Home Phone [...] Team Providers + +------+ + | Care Shoe Stitcher Name | Role | Phone | + +------+ + | Pollo Davis MD | PCP | | + +------+ + Allergies + + + + + + | Active Allergy | Reactions | Severity | Noted | Comments | | | | | Date | | + + + + + + | Morphine | Nausea And Vomiting | Low | 03/09/20 | | | | | | 16 | | + + + + + + Medications + + + +---------+------+------+-------+ | Medication | Sig | Dispensed | Refills | Star | End | Statu | | | | | | t | Date | s | | | | | | Date | | | + + + +---------+------+------+-------+ | CINNAMON PO | Take 2 teaspoons by | | 0 | 08/0 | | Activ | | | mouth daily. | | | 2/20 | | e | | | | | | 18 | | | + + + +---------+------+------+-------+ | Calcium | Take 1,000 mg by | | 0 | 08/1 | | Activ | | Carb-Cholecalciferol | mouth daily. | | | 0/20 | | e | | (CALCIUM 1000 + D | | | | 17 | | | | PO) | | | | | | | + + + +---------+------+------+-------+ | Zaira JOVIZenaida | Take by mouth. | | 0 | 02/1 | | Activ | | | | | | 2/20 | | e | | | | | | 18 | | | + + + +---------+------+------+-------+ | aspirin 81 MG | Take 81 mg by mouth | | 0 | 02/1 | | Activ | | tablet | daily. | | | 2/20 | | e | | | | | | 18 | | | + + + +---------+------+------+-------+ | cyanocobalamin | Take 500 mcg by | | 0 | 03/2 | | Activ | | (VITAMIN B-12) 500 | mouth daily. | | | 3/20 | | e | | mcg tablet | | | | 17 | | | + + + +---------+------+------+-------+ | Magnesium 500 MG | Take 500 mg by mouth | | 0 | 08/1 | | Activ | | tablet | daily. | | | 0/20 | | e | | | | | | 17 | | | + + + +---------+------+------+-------+ | Misc Natural | Take by mouth. | | 0 | 02/ | | Activ | | Products (SAW | | | | 12/07 | | e | | PALMETTO) CAPS | | | | 18 | | | + + + +---------+------+------+-------+ | loratadine | Take 10 mg by mouth | | 0 | | | Activ | | (CLARITIN) 10 mg | as needed. | | | | | e | | tablet | | | | | | | + + + +---------+------+------+-------+ | isosorbide | Take 1 tablet by | 90 | 3 | 08/2 | 08 | Activ | | mononitrate (IMDUR) | mouth Daily. | tablet | | 07/07 | 06/06 | e | | 30 mg ER tablet | | | | 19 | 20 | | + + + +---------+------+------+-------+ | atorvaSTATin | Take 20 mg by mouth | | 0 | 11/0 | | Activ | | (LIPITOR) 20 mg | Daily. | | | 4/20 | | e | | tablet | | | | 19 | | | + + + +---------+------+------+-------+ Active Problems + + + | Problem | Noted Date | + + + | Carotid stenosis, asymptomatic, bilateral | 06/15/2019 | + + + | Coronary artery disease involving [place] coronary artery of | 05/19/2018 | | [place] heart | | + + + | S/P CABG x 2 | 05/19/2018 | + + + + + | Overview: Hx CAB08/24/2003, CABG*2 (RA Fuchs to | | mary). | + + + + + | Moderate aortic stenosis | 05/19/2018 | + + + | Chronic right-sided heart failure | 05/19/2018 | + + + | Hypertension goal BP (blood pressure) < 140/80 | 05/19/2018 | + + + | Mixed hyperlipidemia | 03/09/2016 | + + + Family History + + +------+ + | Medical History | Relation | Name | Comments | + + +------+ + | Cancer | Brother | | | + + +------+ + | Heart disease | Father | | | + + +------+ + | Other (see comment) | Father | | Heart Problems | + + +------+ + | Other (see comment) | Paternal | | Heart Problems | | | Grandfath | | | | | er | | | + + +------+ + | Cancer | Sister | | | + + +------+ + + +------+ + + | Relation | Name | Status | Comments | + +------+ + + | Brother | | | prostate cancer | | | | (Age | | | | | 67) | | + +------+ + + | Brother | | | | + +------+ + + | Father | | | CHF,heart disease | | | | (Age | | | | | 64) | | + +------+ + + | Mother | | | unknown status | | | | (Age | | | | | 82) | | + +------+ + + | Paternal Grandfather | | | | + +------+ + + | Sister | | | renal failure-cancer | | | | (Age | | | | | 55) | | + +------+ + + | Sister | | | | + +------+ + + Social History + +-------+ +--------+------+ [...] on file | | + + + Last Filed Vital Signs + + + [...] + + + | Respiratory Rate | 18 | 05/19/2018 10:17 AM | | | | | PDT [...] | | + + + + + Plan of Treatment +--------+---------+ + + + | Date | Type | Specialty | Care Team | Description | +--------+---------+ + + + | 05/16/ | Office | Cardiology | Dina Butts DO | | | 2019 | Visit | | [address] | | | | | | [place] | | | | | | [phone] | | | | | | | | +--------+---------+ + + + + + +-------+ + | Health Maintenance | Due Date | Last | Comments | | | | Done | | + + +-------+ + | Vaccine: | | | | | Dtap/Tdap/Td (1 - | 6 | | | | Tdap) | | | | + + +-------+ + | Vaccine: Zoster (1 | | | | | of 2) | 7 | | | + + +-------+ + | Vaccine: | | | | | Pneumococcal 65+ (1 | 2 | | | | of 1 - PPSV23) | | | | + + +-------+ + | Adult Annual | | | | | Wellness Visit | 9 | | | + + +-------+ + | Vaccine: Influenza | | | | | (Season Ended) | 0 | | | + + +-------+ + Results Not on filefrom Last 3 Months Insurance + +--------+ +--------+ +---------+--------+ | Payer | Benefi | Subscriber | Effect | Phone | Address | Type | | | t Plan | ID | ginna | | | | | | / | | Dates | | | | | | Group | | | | | | + +--------+ +--------+ +---------+--------+ | MEDICARE | MEDICA | [id number] | 02/16/20 | [phone] | | Medica | | | RE | | 02-Pre | 5 | | re | | | PART A | | sent | | | | | | AND B | | | | | | + +--------+ +--------+ +---------+--------+ | [employer] | MUTUAL | [id number] | 04/17/20 | [phone] | | Indemn | | | AND | | 16-Pre | 0 | | ity | | | UNITED | | sent | | | | | | [employer] | | | | | | | | MDCR | | | | | | | | SUPPL | | | | | | + +--------+ +--------+ +---------+--------+ + +--------+ +--------+ + + | Guarantor Name | Accoun | Relation to | Date | Phone | Billing Address | | | t Type | Patient | of | | | | | | | | | | + +--------+ +--------+ + + | Dain Coronado | Person | Self | [birth year] | [id number] | | | al/Fam | | 1935 | [phone] | [place] | | | [place] | | | [address] (Home) | [address] | + +--------+ +--------+ + + Advance Directives + + + + + | Type | Date Recorded | Patient | Explanation | | | | Piecer | | + + + + + | Power of | | | | | Poem Writer | | | | + + + + + | Advance | | | | | Directive | | | | + + + + +
--- OUTSIDE RECORDS SUMMARY | ~2020-04-13 | XMS | Encounter Summary ---
Demographics + + + | Address | [address] | | | [place] [address] | + + + | Home Phone | | + + + | Preferred Language | Unknown | + + + | Marital Status | | + + + | Church Affiliation | 1027 | + + + | Race | Unknown | + + + | Ethnic Group | Unknown | + + + Author + + + | Author | [facility] | | | and [place] | + + + | Organization | [facility] | | | [...] Team Providers + +------+ + | Care Hosiery Looper Name | Role | Phone | + +------+ + | Pollo Davis MD | PCP | | + +------+ + Reason for Visit +--------+--------+ + | Reason | Onset | Comments | | | Date | | +--------+--------+ + | Other | 06/15/ | called to remind patient to bring meds | | | 2019 | | +--------+--------+ + Encounter Details +--------+ + + + + | Date | Type | Department | Care Team | Description | +--------+ + + + + | 06/15/ | Telephone | [facility] | Zee Schulz | Other (called to | | 2018 | | CARDIOLOGY GEO Estevez, Geneticist | remind patient to | | | | [address] | | bring med ) | | | | [address] | | | | | | [place] | | | | | | [address] | | | | | | [phone] | | | +--------+ + + + [...] + + documented as of this encounter Miscellaneous Notes Telephone Encounter - Zee Schulz, Geneticist - 06/15/2019 9[facility] remind them to bring med[facility], patient did not answer and vo icemail is not set up. JDW:UI APPLICATION DEVELOPER-AAMA. [facility] umented in this encounter Plan of Treatment +--------+---------+ + + + | Date | Type | Specialty | Care Team | Description | +--------+---------+ + + + | 05/16/ | Office | Cardiology | Dina Butts DO | | | 2019 | Visit | | [address] | | | | | | [place] | | | | | | [id number] | | | | | | | | +--------+---------+ + + + documented as of this encounter Visit Diagnoses Not on filedocumented in this encounter"
--- OUTSIDE RECORDS SUMMARY | ~2020-04-13 | XMS | Encounter Summary ---
Demographics + + + | Address | [address] | | | [place] [address] | + + + | Home Phone | | + + + | Preferred Language | Unknown | + + + | Marital Status | | + + + | Methodist Affiliation | 1027 | + + + | Race | Unknown | + + + | Ethnic Group | Unknown | + + + Author + + + | Author | [facility] | | | and [place] | + + + | Organization | [facility] | | | [...] Team Providers + +------+ + | Care Hand Picker Name | Role | Phone | + +------+ + | Pollo Davis MD | PCP | | + +------+ + Encounter Details +--------+ + + + + | Date | Type | Department | Care Team | Description | +--------+ + + + + | 04/04/ | Orders Only | [facility] | Katia Mcbride | | | 2018 | | [address] | | | | | [address] | [address] | | | | | [place], [place] | [place] [address] | | | | | [address] | [phone] | | | | | [phone] | | | +--------+ + + + [...] [place] | | | | | | [address] | | | | | | | | +--------+---------+ + + + documented as of this encounter Procedures + +--------+ + + + | Procedure Name | Priori | Date/Time | Associated Diagnosis | Comments | | | ty | | | | + +--------+ + + + | ECHO INTERPRETATION | Routin | 04/04/2018 | | Results for this | | OF OUTSIDE FILMS | e | 3:22 PM | | procedure are in the | | | | PDT | | results section. | + +--------+ + + + documented in this encounter Results ECHO Interpretation of Outside Films (04/04/2018 3:22 PM PDT) + + | Specimen | + + | | + + + + + | Impressions | Performed At | + + + | 1. The left ventricle is normal in size, wall thickness and systolic | | | function EF 55-60%. 2. The right ventricle is normal in size and | | | function. 3. The aortic valve is moderately calcified with moderate | | | stenosis mean gradient of 16 mmHg. 4. Mild tricuspid regurgitation | | | and no pulmonary hypertension. 5. There is no pericardial effusion. | | + + + + + + | Narrative | Performed At | + + + | Patient Name: Dain Coronado Date of : 1935 | | | Performing Physician: Sang Cruz | | | | | | INDICATIONS aortic stenosis CONCLUSIONS | | | 1. The left ventricle is normal in size, wall thickness and systolic | | | function EF 55-60%. 2. The right ventricle is normal in size and | | | function. 3. The aortic valve is moderately calcified with moderate | | | stenosis mean gradient of 16 mmHg. 4. Mild tricuspid regurgitation | | | and no pulmonary hypertension. 5. There is no pericardial effusion. | | | FINDINGS -------- ECG rhythm: Sinus rhythm. Study: A | | | 2-dimensional transthoracic echocardiogram with m-mode, spectral and | | | color flow Doppler was perfomed. Study: This was a technically | | | adequate study. Left Ventricle: Overall left ventricular systolic | | | function is normal with, an EF between 55 - 60 %. Left Ventricle: The | | | left ventricle cavity size is normal. Left Ventricle: Left | | | ventricular wall thickness is normal. Left Ventricle: The diastolic | | | filling pattern indicates impaired relaxation consistent with mild | | | dysfunction (Grade I). Right Ventricle: The right ventricle is normal | | | in size and function. Left Atrium: The left atrium is mildly | | | enlarged. Right Atrium: The right atrium is normal in size. Aortic | | | Valve: Aortic valve is moderately thickened. Aortic Valve: The aortic | | | valve is moderately calcified. Aortic Valve: There is mild aortic | | | regurgitation. Aortic Valve: The aortic pressure half-time by doppler | | | is 979ms. Aortic Valve: Moderate aortic stenosis with peak/mean | | | pressure gradient of 28.61mmHg / 16.25mmHg, the aortic valve area by | | | continuity equation is 1.4cm . Mitral Valve: Mild mitral | | | regurgitation is present. Mitral Valve: Moderate mitral annular | | | calcification present. Tricuspid Valve: The tricuspid valve appears | | | structurally normal. Tricuspid Valve: Mild tricuspid regurgitation | | | present. Tricuspid Valve: There is no evidence of pulmonary | | | hypertension. Tricuspid Valve: The right ventricular systolic | | | pressure (pulmonary artery systolic pressure), as measured by Doppler, | | | is 20.14mmHg. Pulmonic Valve: Pulmonic valve appears structurally | | | normal. Pulmonic Valve: Trace pulmonic regurgitation. Pericardium: | | | There is no pericardial effusion. Pericardium: No pleural effusion | | | seen. IVC/Hepatic Veins: The inferior vena cava is normal in size and | | | collapses > 50 % with sniff, indicating normal central venous | | | pressures. Aorta: The aortic root, ascending aorta and aortic arch | | | are normal. Mass: No mass visualized Thrombus: No clot visualized | | | Thrombus: No vegetation visualized. Septum: No ASD observed. Septum: | | | No VSD observed. MEASUREMENTS Ao asc: 3.19 cm | | | Ao sinus: 3.[address] junct: 2.83 cm IVC: 1.58 cm LA | | | Diam: 3.95 cm EDV(Teich): 87.05 ml IVSd: 0.91 cm LVIDd: | | | 4.38 cm LVPWd: 0.96 cm LVOT Area: 3.91 cm2 LVOT Diam: | | | 2.23 cm %FS: 31.37 % EF(Teich): 59.45 % ESV(Teich): 35.29 | | | ml LVIDs: 3.01 cm SV(Teich): 51.75 ml RVIDd: 3.39 cm LVEF | | | MOD A2C: 56.11 % SV MOD A2C: 61.15 ml LVEF MOD A4C: 64.59 | | | % SV MOD A4C: 84.42 ml EF Biplane: 60.28 % LVEDV MOD BP: | | | 119.64 ml LVESV MOD BP: 47.51 ml LVEDV MOD A2C: 108.98 ml | | | LVLd A2C: 7.96 cm LVEDV MOD A4C: 130.69 ml LVLd A4C: 7.81 | | | cm LVESV MOD A2C: 47.82 ml LVLs A2C: 6.70 cm LVESV MOD A4C: | | | 46.26 ml LVLs A4C: 6.45 cm LAESV(A-L): 64.91 ml LAESV | | | Index (A-L): 35.86 ml/m2 LAAs A2C: 20.25 cm2 LAESV A-L A2C: | | | 65.51 ml LALs A2C: 5.31 cm LAAs A4C: 19.16 cm2 LAESV A-L | | | A4C: 61.39 ml LALs A4C: 5.07 cm RAAs: 17.35 cm2 RAESV A-L: | | | 53.38 ml RAESV MOD: 48.96 ml RALs: 4.78 cm TAPSE: 2.12 | | | cm AR Dec [place]: 1.19 m/s2 AR Dec Time: 3376.00 ms AR maxPG: | | | 65.54 mmHg AR PHT: 979.04 ms AR Vmax: 4.04 m/s AV maxPG: | | | 28.60 mmHg AV meanP.24 mmHg AV Vmax: 2.67 m/s AV | | | Vmean: 1.89 m/s AV VTI: 57.38 cm LUIS Vmax: 1.50 cm2 LUIS | | | (VTI): 1.36 cm2 AVAI (Vmax): 0.00 cm2/m2 AVAI (VTI): 0.00 | | | cm2/m2 LVOT maxP.20 mmHg LVOT meanP.80 mmHg LVSI | | | Dopp: 43.34 ml/m2 LVSV Dopp: 78.45 ml LVOT Vmax: 1.02 m/s | | | LVOT Vmean: 0.60 m/s LVOT VTI: 20.01 cm MV A Kahlil: 0.60 m/s | | | MV Dec [place]: 1.79 m/s2 MV DecT: 248.00 ms MV E Kahlil: 0.44 | | | m/s MV E/A Ratio: 0.73 MV PHT: 71.92 ms MVA By PHT: 3.05 | | | cm2 Septal e': 0.05 m/s Septal E/e': 8.50 Lateral e': 0.06 | | | m/s Lateral E/e': 6.45 RAP: 5 mmHg RVSP: 20.14 mmHg TR | | | maxP.14 mmHg TR Vmax: 1.94 m/s Sales Order Processor: STEPHEN | | | Authenticated by: Sang Ferrercecil Report Date/Time: 04-05-2018 | | | 20:42:12 | | + + + + --+ | Procedure Note | + --+ | Jc Dominic Conversion - 06/08/2019 3:12 PM PDT Patient Name: Jerri Coronado of | | : 1935 Performing Physician: Sang | | Nancy INDICATIONS------ | | -----aortic stenosis CONCLUSIONS 1. The left ventricle is normal in size, wall | | thickness and systolic function EF 55-60%.2. The right ventricle is normal in size and | | function.3. The aortic valve is moderately calcified with moderate stenosis mean | | gradient of 16 mmHg.4. Mild tricuspid regurgitation and no pulmonary hypertension.5. | | There is no pericardial effusion. FINDINGS--------ECG rhythm: Sinus rhythm.Study: A | | 2-dimensional transthoracic echocardiogram with m-mode, spectral and color flow Doppler | | was perfomed.Study: This was a technically adequate study.Left Ventricle: Overall left | | ventricular systolic function is normal with, an EF between 55 - 60 %.Left Ventricle: | | The left ventricle cavity size is normal.Left Ventricle: Left ventricular wall thickness | | is normal.Left Ventricle: The diastolic filling pattern indicates impaired relaxation | | consistent with mild dysfunction (Grade I).Right Ventricle: The right ventricle is | | normal in size and function.Left Atrium: The left atrium is mildly enlarged.Right | | Atrium: The right atrium is normal in size.Aortic Valve: Aortic valve is moderately | | thickened.Aortic Valve: The aortic valve is moderately calcified.Aortic Valve: There is | | mild aortic regurgitation.Aortic Valve: The aortic pressure half-time by doppler is | | 979ms.Aortic Valve: Moderate aortic stenosis with peak/mean pressure gradient of | | 28.61mmHg / 16.25mmHg, the aortic valve area by continuity equation is | | 1.4cm .Mitral Valve: Mild mitral regurgitation is present.Mitral Valve: Moderate | | mitral annular calcification present.Tricuspid Valve: The tricuspid valve appears | | structurally normal.Tricuspid Valve: Mild tricuspid regurgitation present.Tricuspid | | Valve: There is no evidence of pulmonary hypertension.Tricuspid Valve: The right | | ventricular systolic pressure (pulmonary artery systolic pressure), as measured by | | Doppler, is 20.14mmHg.Pulmonic Valve: Pulmonic valve appears structurally | | normal.Pulmonic Valve: Trace pulmonic regurgitation.Pericardium: There is no | | pericardial effusion.Pericardium: No pleural effusion seen.IVC/Hepatic Veins: The | | inferior vena cava is normal in size and collapses > 50 % with sniff, indicating normal | | central venous pressures.Aorta: The aortic root, ascending aorta and aortic arch are | | normal.Mass: No mass visualizedThrombus: No clot visualizedThrombus: No vegetation | | visualized.Septum: No ASD observed.Septum: No VSD observed. MEASUREMENTS Ao | | asc: 3.19 cmAo sinus: 3.[address] junct: 2.83 cmIVC: 1.58 cmLA Diam: 3.95 | | cmEDV(Teich): 87.05 mlIVSd: 0.91 cmLVIDd: 4.38 cmLVPWd: 0.96 cmLVOT Area: 3.91 | | [id number] Diam: 2.23 cm%FS: 31.37 %EF(Teich): 59.45 %ESV(Teich): 35.29 mlLVIDs: | | 3.01 cmSV(Teich): 51.75 mlRVIDd: 3.39 cmLVEF MOD A2C: 56.11 %SV MOD A2C: 61.15 | | mlLVEF MOD A4C: 64.59 %SV MOD A4C: 84.42 mlEF Biplane: 60.28 %LVEDV MOD BP: | | 119.64 mlLVESV MOD BP: 47.51 mlLVEDV MOD A2C: 108.98 mlLVLd A2C: 7.96 cmLVEDV MOD | | A4C: 130.69 mlLVLd A4C: 7.81 cmLVESV MOD A2C: 47.82 mlLVLs A2C: 6.70 cmLVESV MOD | | A4C: 46.26 mlLVLs A4C: 6.45 cmLAESV(A-L): 64.91 mlLAESV Index (A-L): 35.86 | | ml/m2LAAs A2C: 20.25 [id number] A-L A2C: 65.51 mlLALs A2C: 5.31 cmLAAs A4C: 19.16 | | [id number] A-L A4C: 61.39 mlLALs A4C: 5.07 cmRAAs: 17.35 [id number] A-L: 53.38 | | mlRAESV MOD: 48.96 mlRALs: 4.78 cmTAPSE: 2.12 cmAR Dec [place]: 1.19 m/s2AR Dec | | Time: 3376.00 msAR maxP.54 mmHgAR PHT: 979.04 msAR Vmax: 4.04 m/Ralph maxPG: | | 28.60 mmHgAV meanP.24 mmHgAV Vmax: 2.67 m/Ralph Vmean: 1.89 m/Ralph VTI: | | 57.38 cmAVA Vmax: 1.50 cm2AVA (VTI): 1.36 [id number] (Vmax): 0.00 cm2/m2AVAI (VTI): | | 0.00 cm2/m2LVOT maxP.20 mmHgLVOT meanP.80 mmHgLVSI Dopp: 43.34 ml/m2LVSV | | Dopp: 78.45 mlLVOT Vmax: 1.02 m/sLVOT Vmean: 0.60 m/sLVOT VTI: 20.01 cmMV A Kahlil: | | 0.60 m/sMV Dec [place]: 1.79 m/s2MV DecT: 248.00 msMV E Kahlil: 0.44 m/sMV E/A | | Ratio: 0.73MV PHT: 71.92 msMVA By PHT: 3.05 [id number] e': 0.05 m/sSeptal E/e': | | 8.50Lateral e': 0.06 m/sLateral E/e': 6.45RAP: 5 mmHgRVSP: 20.14 mmHgTR maxPG: | | 15.14 mmHgTR Vmax: 1.94 m/s Sales Order Processor: DBSAuthenticated by: Sang Jaeger | | Date/Time: 04-05-2018 20:42:12 IMPRESSION: 1. The left ventricle is normal in size, wall | | thickness and systolic function EF 55-60%.2. The right ventricle is normal in size and | | function.3. The aortic valve is moderately calcified with moderate stenosis mean | | gradient of 16 mmHg.4. Mild tricuspid regurgitation and no pulmonary hypertension.5. | | There is no pericardial effusion. | |Ao asc: 3.19 cm | |Ao sinus: 3.39 cm | |Ao st junct: 2.83 cm | |IVC: 1.58 cm | |LA Diam: 3.95 cm | |EDV(Teich): 87.05 ml | |IVSd: 0.91 cm | |LVIDd: 4.38 cm | |LVPWd: 0.96 cm | |LVOT Area: 3.91 cm2 | |LVOT Diam: 2.23 cm | |%FS: 31.37 % | |EF(Teich): 59.45 % | |ESV(Teich): 35.29 ml | |LVIDs: 3.01 cm | |SV(Teich): 51.75 ml | |RVIDd: 3.39 cm | |LVEF MOD A2C: 56.11 % | |SV MOD A2C: 61.15 ml | |LVEF MOD A4C: 64.59 % | |SV MOD A4C: 84.42 ml | |EF Biplane: 60.28 % | |LVEDV MOD BP: 119.64 ml | |LVESV MOD BP: 47.51 ml | |LVEDV MOD A2C: 108.98 ml | |LVLd A2C: 7.96 cm | |LVEDV MOD A4C: 130.69 ml | |LVLd A4C: 7.81 cm | |LVESV MOD A2C: 47.82 ml | |LVLs A2C: 6.70 cm | |LVESV MOD A4C: 46.26 ml | |LVLs A4C: 6.45 cm | |LAESV(A-L): 64.91 ml | |LAESV Index (A-L): 35.86 ml/m2 | |LAAs A2C: 20.25 cm2 | |LAESV A-L A2C: 65.51 ml | |LALs A2C: 5.31 cm | |LAAs A4C: 19.16 cm2 | |LAESV A-L A4C: 61.39 ml | |LALs A4C: 5.07 cm | |RAAs: 17.35 cm2 | |RAESV A-L: 53.38 ml | |RAESV MOD: 48.96 ml | |RALs: 4.78 cm | |TAPSE: 2.12 cm | |AR Dec [place]: 1.19 m/s2 | |AR Dec Time: 3376.00 ms | |AR maxP.54 mmHg | |AR PHT: 979.04 ms | |AR Vmax: 4.04 m/s | |AV maxP.60 mmHg | |AV meanP.24 mmHg | |AV Vmax: 2.67 m/s | |AV Vmean: 1.89 m/s | |AV VTI: 57.38 cm | |LUIS Vmax: 1.50 cm2 | |LUIS (VTI): 1.36 cm2 | |AVAI (Vmax): 0.00 cm2/m2 | |AVAI (VTI): 0.00 cm2/m2 | |LVOT maxP.20 mmHg | |LVOT meanP.80 mmHg | |LVSI Dopp: 43.34 ml/m2 | |LVSV Dopp: 78.45 ml | |LVOT Vmax: 1.02 m/s | |LVOT Vmean: 0.60 m/s | |LVOT VTI: 20.01 cm | |MV A Kahlil: 0.60 m/s | |MV Dec [place]: 1.79 m/s2 | |MV DecT: 248.00 ms | |MV E Kahlil: 0.44 m/s | |MV E/A Ratio: 0.73 | |MV PHT: 71.92 ms | |MVA By PHT: 3.05 cm2 | |Septal e': 0.05 m/s | |Septal E/e': 8.50 | |Lateral e': 0.06 m/s | |Lateral E/e': 6.45 | |RAP: 5 mmHg | |RVSP: 20.14 mmHg | |TR maxP.14 mmHg | |TR Vmax: 1.94 m/s | | | |Sales Order Processor: DBS | |Authenticated by: Sang Cruz | |Report Date/Time: 04-05-2018 20:42:12 | | | |IMPRESSION: | |1. The left ventricle is normal in size, wall thickness and systolic function EF 55-60%. | |2. The right ventricle is normal in size and function. | |3. The aortic valve is moderately calcified with moderate stenosis mean gradient of 16 mmHg . | |4. Mild tricuspid regurgitation and no pulmonary hypertension. | |5. There is no pericardial effusion. | + --+ documented in this encounter Visit Diagnoses Not on filedocumented in this encounter"
--- OUTSIDE RECORDS SUMMARY | ~2020-04-13 | XMS | Encounter Summary ---
Demographics + + + | Address | [address] [facility] | | | [place] [address] | + + + | Home Phone | | + + + | Preferred Language | Unknown | + + + | Marital Status | | + + + | Anabaptism Affiliation | 1027 | + + + | Race | Unknown | + + + | Ethnic Group | Unknown | + + + Author + + + | Author | [facility] | | | and [place] | + + + | Organization | [facility] | | | and [...] Team Providers + +------+ + | Care Bilingual Spanish Inbound Sales Name | Role | Phone | + +------+ + | Pollo Davis MD | PCP | | + +------+ + Encounter Details +--------+ + + + + | Date | Type | Department | Care Team | Description | +--------+ + + + + | 03/09/ | Orders Only | [facility] | Conversion | | | 2016 | | CONVERSION DEP [address] | Transaction, | | | | | [address] | Provider Unknown | | | | | [facility] | [phone] | | | | | [phone] | | | | | | [phone] | | | +--------+ + + + [...] [place]UD | | | | | | [address] | | | | | | | | +--------+---------+ + + + documented as of this encounter Visit Diagnoses Not on filedocumented in this encounter"
== END 2020-04-13 15:33 | disposition home or self-care (01) ==
LOC: ED 13:06
PROC: 0XQMXZZ Repair Left Thumb, External Approach (ICD-10-PCS; principal; 2020-04-13)
DX: S61.012A Laceration without foreign body of left thumb without damage to nail, initial encounter (principal); I25.10 Atherosclerotic heart disease of native coronary artery without angina pectoris; E78.5 Hyperlipidemia, unspecified; Z23 Encounter for immunization; Z88.5 Allergy status to narcotic agent; Z91.018 Allergy to other foods; Z91.011 Allergy to milk products; W27.0XXA Contact with workbench tool, initial encounter
CPT/HCPCS: 12001; 90471; 90715; 99282-25

== ENCOUNTER 2020-12-17 05:33 | Day surgery (SDC) | payer MEDICARE, OTHER ==
[~2020-12-17] VITALS: Ht 172.7 cm; Wt 65.9 kg
[~2020-12-17 05:33] MED LIST: ATORVASTATIN CA20 MG PO; BAYER CHEWABLE81 MG PO; CALCIUM500 M1 PO; ISOSORBIDE MONO30 MG PO; MAGNESIUM100 MG PO; MIXED TOCOTRIE1 EACH PO; ZINC10 MG PO
--- NOTE | 2020-12-17 06:10 | NUR ---
[facility] RAPID COVID TEST DONE PER ORDER. COVID TEST COLLECTED FROM BOTH NARES W/O ISSUE. PT TOLERATED WELL.
--- NOTE | 2020-12-17 09:50 | NUR ---
12/17/20 0950 Mikael Correa NEW ONSET AFLUTTER NOTED DURING REPORT. ORDER FOR 12 LEAD ENTERED. AND PAULINE AWARE.
--- NOTE | 2020-12-17 10:19 | NUR ---
PT ALERT, ORIENTED AND OR STAFF WSITING TO TAKE PT. PT IN GOOD SPIRITS, GRAYLING BUT ABLE TO CONNECT WELL. PT REQUESTED PRAYER, WILL FOLLOW
--- NOTE | 2020-12-17 12:17 | NUR ---
PT IS BACK TO FROM PACU. HE IS BACK TO HIS BASELINE. HE VOIDS USING A URINAL UPON HIS ARRIVAL. HIS TESSA DRAIN IS EMPTIED FOR 20ML'S OF SANGUINOUS DRAINAGE. WATER ON BEDSIDE TABLE. CALL LIGHT WITHIN REACH. NO ADDITIONAL NEEDS AT THIS TIME.
--- NOTE | 2020-12-17 13:00 | NUR ---
PT RESTING IN BED AWAKE AND ALERT. URINAL ON BEDSIDE TABLE WITH APPROX 350 MLS DILUTE YELLOW URINE. LAB IN PT ROOM DRAWING ORDERED TROPONIN. PT STATES "PRESSURE" IN LEFT GROIN BUT DENIES "ACTUAL PAIN" ENCOURAGED TO NOTIFY RN IF PAIN DEVELOPS. CALL LIGHT WITHIN REACH.
--- NOTE | 2020-12-17 13:22 | NUR ---
1310: DR. DIMAS IN SD ROOM RO ASSESS. APPROX 40 MLS OF SANGUINOUS OUTPUT FROM TESSA DRAIN. SECOND JELLO PROVIDED.
--- NOTE | 2020-12-17 13:32 | NUR ---
LUNCH ORDERED FOR PT
--- NOTE | 2020-12-17 13:48 | EKG ---
[facility] [address] [facility] [place], [place] [address] Signed Atrial fibrillation Incomplete right bundle branch block Marked ST abnormality, possible inferior subendocardial injury Abnormal ECG When compared with ECG of 17-DEC-2020 10:57, (Unconfirmed) Atrial fibrillation has replaced Atrial flutter Confirmed by MOON WANG DO ([id number]) on 12/17/2020 1:48:47 PM Electronically Signed By: MOON WANG DO 12/17/20 1348 PATIENT NAME: KORTNEY TURK Electrocardiogram DATE OF : 39 PHYSICIAN: MOON WANG DO REPORT #: [id number] REPORT IS CONFIDENTIAL AND NOT TO BE RELEASED WITHOUT AUTHORIZATION
--- NOTE | 2020-12-17 13:48 | EKG ---
[facility] [address] [facility] [place] [address] Signed Atrial flutter with variable AV block ST \T\ T wave abnormality, consider inferior ischemia Abnormal ECG When compared with ECG of 11-DEC-2020 14:46, Atrial flutter has replaced Sinus rhythm T wave inversion now evident in Inferior leads Confirmed by MOON WANG DO ([id number]) on 12/17/2020 1:48:32 PM Electronically Signed By: MOON WANG DO 12/17/20 1348 PATIENT NAME: KORTNEY TURK Electrocardiogram DATE OF : 39 PHYSICIAN: MOON WANG DO REPORT #: [id number] REPORT IS CONFIDENTIAL AND NOT TO BE RELEASED WITHOUT AUTHORIZATION
--- NOTE | 2020-12-17 14:00 | NUR ---
PT TOLERATES LUNCH WITH NO COMPLAINTS OF NAUSEA. DR. DIMAS IN PT ROOM CONVERSING WITH PT ABOUT DC AND PLAN OF CARE. PT CONT TO DENY PAIN IN SURGICAL AREA AND STATES IT IS "MORE ANNOYING THAN PAINFUL." 1430: DR. DIMAS WOULD LIKE PT TO SEE DR. SOLIZ IN A WEEK OR TWO FOR CARDIAC FOLLOW UP. THIS RN CALLS DR. SOLIZ'S OFFICE TO SET APPOINTMENT, OFFICE WILL CALL BACK WITH INFORMATION. PT DAUGHTER IN LAW ON HER WAY TO HOSPITAL FOR DC PLANNING AND SAFE RIDE HOME.
[2020-12-17] MEDS ORDERED: ACETAMINOPHEN500 MG PO (14:13)
[2020-12-17] MEDS ORDERED: IBUPROFEN600 MG PO (14:13)
[2020-12-17] MEDS ORDERED: TRAMADOL HCL50 MG PO (14:14)
[2020-12-17] MEDS ORDERED: ULTRAM50 MG PO (15:23)
--- NOTE | 2020-12-17 16:03 | NUR ---
LE 1530: CLARIFICATION WITH DR DIMAS REGARDING NECESSITY FOR PATIENT TO SEE DR SOLIZ. DR DIMAS REPORTS PATIENT SHOULD SEE HIS PRIMARY DOCTOR. THIS IS DR PALOMARES. CALL TO DR PALOMARES'S OFFICE AND HE IS OUT OF THE OFFICE ALL WEEK. DR PALOMARES'S NURSE WILL CALL PATIENT TOMORROW AT HOME BEFORE NOON TO HAVE HIM SEEN BY ANOTHER PROVIDER IN THE OFFICE. DR DIMAS IS INFORMED OF THIS.
--- NOTE | 2020-12-17 17:04 | NUR ---
[id number]: THIS RN CALLS CCU TO SEE WHAT PT'S TELE RHYTHM IS, CCU RN STATES THAT PT HAS BEEN IN NSR WITH BIGIMINAL PACS SINCE APPROX 1410. PT DAUGHTER IN LAW ARRIVES AND IS EDUCATED ABOUT TESSA DRAIN AND HOW TO DRAIN/CREATE SUCTION. DC INSTRUCTIONS PRESENTED TO DAUGHTER IN LAW AND PT, ALL QUESTIONS ADDRESSED. THIS RN ASSISTS PT DRESSED AND TESSA DRAIN PINNED TO CLOTHING. PT DC VIA WC TO DAUGHTER IN LAW AT PARKED AT HOSPITAL ENTRANCE. PT AWARE OF DR. PALOMARES'S OFFICE CALLING TOMORROW FOR CARDIAC FOLLOW UP.
--- NOTE | 2020-12-18 10:42 | PATH ---
[facility] [address] [place], [place] [address] Signed SPECIMEN(S): A HYDROCELE SAC SPECIMEN SOURCE: A. HYDROCELE SAC CLINICAL HISTORY: Pre: Left inguinal hernia. Post: Excision of giant scrotal hydrocele, repair left inguinal hernia. FINAL PATHOLOGIC DIAGNOSIS: Hydrocele sac, excision: - Consistent with hydrocele sac. - Epididymis with no histopathologic abnormality. NAL:cml:C2NR MICROSCOPIC EXAMINATION: Histologic sections of all submitted blocks are examined by light microscopy. These findings, together with the gross examination, support the pathologic diagnosis. GROSS DESCRIPTION: The specimen, labeled "KE, hydrocele sac," is received in formalin and consists of several pieces of irregular shaped fibromembranous tissue that in aggregate measure 10.0 x 6.5 x 0.8 cm. The specimen is pink-lenz and focally congested. Sectioning through the specimen is grossly unremarkable. Ore Smelter sections are submitted in cassette (A1). JS (under the direct supervision of a pathologist) The Gross Description was prepared using a voice recognition system. The report was reviewed for accuracy; however, sound-alike word errors, addition and/or deletions may occur. If there is any question about this report, please contact Client Services. PERFORMING LABORATORY: The technical component was performed by [facility], [address] [place] [id number] ([employer]: Barbara Siddiqui MD; CLIA# [id number]). [facility], [address] [address] (CLIA# [id number]). Diagnostician: Lea Sandy MD Pathologist PATIENT NAME: KORTNEY TURK PATHOLOGY DATE OF : 39 REPORT #: [id number] PHYSICIAN: [facility] PCP: MARY PALOMARES MD REPORT IS CONFIDENTIAL AND NOT TO BE RELEASED WITHOUT AUTHORIZATION [facility] [address] [place] [id number] Signed Electronically Signed 12/18/2020 Copies: ~ PATIENT NAME: KORTNEY TURK PATHOLOGY DATE OF : 39 REPORT #: [id number] PHYSICIAN: [facility] PCP: MARY PALOMARES MD REPORT IS CONFIDENTIAL AND NOT TO BE RELEASED WITHOUT AUTHORIZATION
--- NOTE | 2020-12-18 18:53 | OR ---
[facility] [address] [place], [place] [address] Signed DATE OF OPERATION: 12/17/2020 SURGEON: Yandy Dimas MD PREOPERATIVE DIAGNOSIS: 1. Left non-reducible inguinal hernia (giant). 2. Aortic stenosis. POSTOPERATIVE DIAGNOSES: 1. Left giant scrotal hydrocele. 2. Moderate sized left direct inguinal hernia. PROCEDURES: 1. Repair of giant left scrotal hydrocele with excision of hydrocele sac and bottle type repair of remnant hydrocele membrane (transinguinal approach). 2. Subdartos testicular pouch via small scrotal incision. 3. Repair of left inguinal hernia without mesh (Bassini-type repair). ANESTHESIA: General endotracheal, Yandy Jacobo CRNA and local 30 mL of 0.25% Marcaine with epinephrine. 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 Mary Davis. He was referred with what was considered to be a giant left inguinal hernia, which was nonreducible. The distortion of the scrotum extended well above inguinal crease into the left groin, considered to be likely a large inguinal hernia. He is considered to have moderate aortic stenosis in 2019 with surface area of 1.4 cm2, now 1.01 cm2 last year. He does not have any urinary outlet obstructive type symptoms and has undergone successful umbilical hernia repair by me in the past. A COVID-19 test performed preoperatively was normal and his urinalysis was normal, his PSA was 0.615. He is admitted at this time to undergo a repair of the hernia and other indicated procedures depending on clinical findings. He understands the risks of bleeding, infection, recurrence, need for other indicated procedures and of course, cardiopulmonary complications related to anesthesia given his underlying aortic stenosis. Understanding this, he wished to proceed. FINDINGS: A transinguinal approach was initially undertaken. It became clear that this may represent hydrocele in combination with hernia. Indeed, that was a case. Brownish, Electronically Signed By: YANDY DIMAS MD 12/18/20 1853 PATIENT NAME: KORTNEY TURK OPERATIVE REPORT DATE OF : 39 REPORT #: [id number] PHYSICIAN: YANDY DIMAS MD PCP: MARY DAVIS MD REPORT IS CONFIDENTIAL AND NOT TO BE RELEASED WITHOUT AUTHORIZATION [facility] [address] [place], [place] [address] Signed greenish and old hydrocele fluid was decompressed for delivery of the left inguinal contents into the incision decompressing the scrotum entirely. Ultimately, it was found he had a very large left scrotal hydrocele as well as a direct hernia. Complete excision of the hydrocele sac with preservation of a small remnant, which was reapproximated in a bottle type technique was undertaken and the testicle reimplanted in a subdartos pouch in the left hemiscrotum. As regards to hernia, there was indeed a direct hernia, but it was not large and did not account for the bulk of the finding. This was repaired with Bassini-type technique without implantation of mesh. DESCRIPTION OF PROCEDURE: The patient was brought to the operating room, given a general endotracheal anesthetic. Preoperative antibiotic Ancef was given. Sequential compression device stockings were used and heparin subcutaneously administered. Photographs were taken of the pathologic process in the scrotum and lower abdomen clipped and prepared with a chlorhexidine solution and draped sterilely. Transillumination was attempted with the operative light to assess for possible hydrocele component. There was no sign of transillumination. An incision was made in the left groin over the bulky mass and dissection carried through the subcutaneous tissue with blunt and electrocautery dissection. The attenuated fibers of the external oblique were and further manipulation undertaken with blunt and electrocautery dissection. The process which extended from what appeared to be the abdomen into the scrotum was bluntly circumferentially. As the layers were peeled away, became clear that there was a high probability this represented at least in part of the hydrocele. A 14-gauge angiocatheter was used to puncture the site which delivered dark opaque greenish, brown fluid. This was indicative of possible previous hemorrhage in the site. Indeed, at least 600 mL of fluid was decompressed, thus fully decompressing the left hemiscrotum. The cord was dissected free from surrounding tissues, encircled with a Olla drain and the entire complex withdrawn into the groin incision. The hydrocele sac was then identified, incised and opened and internal examination of the left testicle undertaken. The bulk of the hydrocele sac extended inferior to the testicle itself. It did not appear to be a communicating hydrocele at all upon dissection more proximally. The thickened chronically inflamed hydrocele membrane was dissected free from the inferior aspect of the hemiscrotum, mindful of the vascular supply to the testicle itself. Ultimately, redundant hydrocele sac was free from surrounding dermis of the hemiscrotum trimming it off as much as possible that relieving a remnant to secure posteriorly to the testicle and cord structures. This was accomplished with running 2-0 Vicryl suture. A bottle type closure of the membrane was thus undertaken. A marking suture was secured to the tip of the testicle itself for future manipulation Electronically Signed By: YANDY DIMAS MD 12/18/20 8484 PATIENT NAME: KORTNEY TURK OPERATIVE REPORT DATE OF : 39 REPORT #: [id number] PHYSICIAN: YANDY DIMAS MD PCP: MARY DAVIS MD REPORT IS CONFIDENTIAL AND NOT TO BE RELEASED WITHOUT AUTHORIZATION [facility] [address] [place], [place] [address] Signed into the scrotum. Further dissection was undertaken of the floor of the inguinal canal. There was no sign of indirect hernia sac, but rather a direct hernia defect near the internal ring. Under the circumstances, basic repair without implantation of mesh was deemed most advisable. This was accomplished with interrupted 0 silk sutures securing the tendon of the transversus abdominis to the shelving edge of Poupart's ligament laterally. A two-layer technique was ultimately performed providing good security of the floor and remedy of the hernia defect itself. A relaxing incision was not required. The cord and previously dissected free ilioinguinal nerve were replaced into the canal. Attention was turned towards the scrotum itself. A transverse incision was made in the lower aspect of the scrotum and a subdartos pouch created with blunt and electrocautery dissection. A tonsil clamp was delivered through the scrotum into the inguinal canal grasping the apex of the testicle and avoiding torsion upon its delivery into the subdartos pouch. The testicle was secured to the dermis of the scrotum inferiorly, laterally and medially with interrupted 2-0 Vicryl and the dartos muscle approximated over the testicle with interrupted 2-0 Vicryl. Care was taken to be sure the testicle is well oriented in the hemiscrotum so as to avoid torsion. There were separate stab incision laterally, a 7 mm flat Quentin drain was placed into the depths of the scrotum. External oblique was reapproximated over the cord and ilioinguinal nerve with special care to avoid encumbrance of the nerve itself. This was accomplished with 2-0 Vicryl. A 20 mL of 0.25% Marcaine with epinephrine was injected locally. The Clotilde's layer was reapproximated with interrupted 2-0 Vicryl. The skin closed with running subcuticular of 3-0 Vicryl. Steri-Strips were applied to both wounds. Athletic supporter and fluff gauze were applied to the scrotum. The drain was attached to the skin with nylon suture and attached to bulb suction. Blood loss was less than 20 mL. Sponge, needle, and instrument count were reported as correct x3. He was ultimately extubated and transferred to the recovery room in good condition having suffered no complication. MD SOLOMON Garcia/MODL /[id number] Electronically Signed By: YANDY DIMAS MD 12/18/20 1853 PATIENT NAME: KORTNEY TURK OPERATIVE REPORT DATE OF : 39 REPORT #: [id number] PHYSICIAN: YANDY DIMAS MD PCP: MARY DAVIS MD REPORT IS CONFIDENTIAL AND NOT TO BE RELEASED WITHOUT AUTHORIZATION [address] [address] Signed cc: Mary Davis MD Copies: MARY DAVIS MD ~ Electronically Signed By: YANDY DIMAS MD 12/18/20 1853 PATIENT NAME: KORTNEY TURK OPERATIVE REPORT DATE OF : 39 REPORT #: [id number] PHYSICIAN: YANDY DIMAS MD PCP: MARY DAVIS MD REPORT IS CONFIDENTIAL AND NOT TO BE RELEASED WITHOUT AUTHORIZATION
== END 2020-12-17 16:30 | disposition home or self-care (01) ==
LOC: OPS 05:33 → DS 05:33 → OPS 06:45 → DS 06:45 → OPS 16:30
PROVIDERS: ATTEND Surgery
PROC: 0VB70ZZ Excision of Left Tunica Vaginalis, Open Approach (ICD-10-PCS; principal; 2020-12-17 06:45)
PROC: 0YQ60ZZ Repair Left Inguinal Region, Open Approach (ICD-10-PCS; 2020-12-17 06:45)
DX: N43.3 Hydrocele, unspecified (principal); K40.90 Unilateral inguinal hernia, without obstruction or gangrene, not specified as recurrent; I97.191 Other postprocedural cardiac functional disturbances following other surgery; I35.0 Nonrheumatic aortic (valve) stenosis; I10 Essential (primary) hypertension; I25.10 Atherosclerotic heart disease of native coronary artery without angina pectoris; E78.00 Pure hypercholesterolemia, unspecified; G89.29 Other chronic pain; Z20.822 Contact with and (suspected) exposure to COVID-19; Z88.5 Allergy status to narcotic agent; Z91.018 Allergy to other foods; Z91.048 Other nonmedicinal substance allergy status; Z79.82 Long term (current) use of aspirin; Z95.1 Presence of aortocoronary bypass graft; Z87.81 Personal history of (healed) traumatic fracture; Z96.659 Presence of unspecified artificial knee joint
CPT/HCPCS: 36415; 80053; 81001; 82550; 82553; 83735; 83874; 84484; 93005; 93010; C9803; J0690; J1100; J1160; J1644; J1885; J2405; J2704; J3010; J7121; U0003

== ENCOUNTER 2020-12-27 11:53 | Emergency (ER) | payer MEDICARE, OTHER ==
[~2020-12-27] VITALS: Ht 172.7 cm; Wt 65.8 kg
[~2020-12-27 11:53] MED LIST changes: +ACETAMINOPHEN500 MG PO; +IBUPROFEN600 MG PO; +TRAMADOL HCL50 MG PO; +ULTRAM50 MG PO
--- NOTE | 2020-12-28 19:05 | EKG ---
[facility] [address] [facility] [place] [address] Signed Atrial fibrillation Abnormal ECG When compared with ECG of 17-DEC-2020 11:44, Incomplete right bundle branch block is no longer present Nonspecific T wave abnormality, improved in Lateral leads Confirmed by MOON WANG DO ([id number]) on 12/28/2020 7:04:52 PM Electronically Signed By: MOON WANG DO 12/28/20 1905 PATIENT NAME: KORTNEY TURK Electrocardiogram DATE OF : 39 PHYSICIAN: MOON WANG DO REPORT #: [id number] REPORT IS CONFIDENTIAL AND NOT TO BE RELEASED WITHOUT AUTHORIZATION
== END 2020-12-27 14:30 | disposition home or self-care (01) ==
LOC: ED 11:53
DX: I48.91 Unspecified atrial fibrillation (principal); I25.10 Atherosclerotic heart disease of native coronary artery without angina pectoris; E78.5 Hyperlipidemia, unspecified; Z88.8 Allergy status to other drugs, medicaments and biological substances; Z88.5 Allergy status to narcotic agent; Z91.018 Allergy to other foods; Z79.899 Other long term (current) drug therapy
CPT/HCPCS: 80053; 84484; 85025; 93005; 93010; 99285-25

== ENCOUNTER 2021-02-20 05:50 | Day surgery (SDC) | payer MEDICARE, OTHER ==
[~2021-02-20] VITALS: Ht 172.7 cm; Wt 67.2 kg
[2021-02-20] MEDS ORDERED: ELIQUIS5 MG PO (07:02)
[2021-02-20] MEDS ORDERED: KAPSPARGO SPRIN25 MG PO (07:18)
[2021-02-20] MEDS ORDERED: NITROGLYCERIN0.4 MG SL (07:19)
[2021-02-20] MEDS ORDERED: ULTRAM50 MG PO (07:19)
[2021-02-20] MEDS ORDERED: ISOSORBIDE MONO30 MG PO (07:49)
--- NOTE | 2021-02-20 11:10 | NUR ---
0743 SURGERY PROCEDURE CANCELLED DUE TO PT NOT STOPPING ELIQUISE PRIOR TO SURGERY, DR DIMAS OPTED TO DRAIN SCROTUM UNDER LOCAL ANESTHETIC IN PT DAY SURGERY ROOM. [address] MINIMAL DARK RED BLOOD DRAINAGE IN BULB. 1000 PT TOLERATED PROCEDURE WELL DISCHAGE INSTRUCTIONS GIVEN TO DAUGHTER AND PT BOTH VOICED UNDERSTANDIN. DRAINED 30ML OF DARK BLOOD FROM BULB.
--- NOTE | 2021-02-20 11:23 | NUR ---
0989 LATE ENTERY: PT UP TO BATHROOM WITHOUT ASSIT HE WAS ABLE TO VOID CLEAR YELLOW URINE
--- NOTE | 2021-02-20 11:38 | NUR ---
LATE ENERY: PRE OP ANTIBIOTICS AND HEPRIN WERE NOT GIVEN
--- NOTE | 2021-02-20 13:59 | EKG ---
[facility] [address] [facility] [place] [address] Signed Atrial flutter with 4:1 AV conduction Nonspecific intraventricular block Cannot rule out Septal infarct , age undetermined Abnormal ECG When compared with ECG of 27-DEC-2020 12:09, Atrial flutter has replaced Atrial fibrillation Questionable change in QRS duration Minimal criteria for Septal infarct are now present Confirmed by KYLE MATTA MD ([id number]) on 02/20/2021 1:58:57 PM Electronically Signed By: KYLE MATTA MD 02/20/21 1359 PATIENT NAME: KORTNEY TURK Electrocardiogram DATE OF : 39 PHYSICIAN: KYLE MATTA MD REPORT #: [id number] REPORT IS CONFIDENTIAL AND NOT TO BE RELEASED WITHOUT AUTHORIZATION
[2021-02-21] MEDS ORDERED: PERCOCET 5-3251 EACH PO (07:59)
[2021-02-21] MEDS ORDERED: ELIQUIS5 MG PO (08:03)
[2021-02-21] MEDS ORDERED: BAYER CHEWABLE81 MG PO (08:03)
--- NOTE | 2021-02-22 16:02 | OR ---
[facility] [address] [place], [place] [address] Signed DATE OF OPERATION: 02/20/2021 SURGEON: Yandy Dimas MD PREOPERATIVE DIAGNOSES: 1. Recurrent left hemiscrotal seroma and edema. 2. History of excision of giant left hemiscrotum hydrocele and concurrent repair of inguinal hernia. 3. Ongoing Eliquis use. POSTOPERATIVE DIAGNOSES: 1. Recurrent left hemiscrotal seroma and edema. 2. History of excision of giant left hemiscrotum hydrocele and concurrent repair of inguinal hernia. 3. Ongoing Eliquis use. PROCEDURES: 1. Aspiration and drainage of left hemiscrotum bloody fluid. 2. Placement of seroma cath scrotal drain. ANESTHESIA: 1% lidocaine. INDICATION: This 86-year-old white man underwent repair of a giant left hemiscrotal hydrocele as well as concurrent hernia repair on December 17, 2020. He did have a drain following operation, which was removed soon after operation without problem. The patient is on Eliquis chronically. The patient presented previously with recurrent swelling of the left hemiscrotum, far less than his original problem and underwent aspiration of about 180 mL of thin dark fluid from the left hemiscrotum allowing for decompression of the hemiscrotum and resolution of local symptoms of discomfort. He had recurrent symptoms and was seen once again and drainage undertaken one more time in the office setting with less fluid removed with improvement of his situation. I advised him to let me know if things were recurring in which case a more formal larger drain would be placed operatively. I was advised of this yesterday by his [id number] at my office and we arranged for him today to undergo operative placement of a Quentin drain or other similar large bore drain to allow for resolution of the recurrent bloody seroma. However, he had not discontinued his Eliquis and on that basis, more formal operative drainage is deemed inadvisable at this time. Electronically Signed By: YANDY DIMAS MD 02/22/21 1602 PATIENT NAME: KORTNEY TURK OPERATIVE REPORT DATE OF : 39 REPORT #: [id number] PHYSICIAN: YANDY DIMAS MD PCP: MARY DAVIS MD REPORT IS CONFIDENTIAL AND NOT TO BE RELEASED WITHOUT AUTHORIZATION [facility] [address] [place], [place] [address] Signed Examination shows erythema of the left hemiscrotum far more than in the past and low-grade infection is suspected. He does have significant tenderness, which is of uncertain etiology, whether from inflammation or infection versus simple distention of the left hemiscrotum. I have advised against formal operation at this time, but rather drainage of the left hemiscrotum and placement of a seroma cath if appropriate. His [id number], who accompanies him agrees as does the patient to this approach. FINDINGS: Aspiration of left hemiscrotum withdrew approximately 120 mL in total of bloody fluid, which was far more opaque than in the past and suggestive somewhat of infection. Fluid was sent for Gram stain and culture. Seroma catheter was placed, which allowed for good drainage as well. The device was secured in place at this point on suction through the bulb drainage catheter. DESCRIPTION OF PROCEDURE: In the Day Surgery area, the left hemiscrotum was prepared with a Betadine solution and draped sterilely. A 1% lidocaine with epinephrine was injected locally. Using a 50 mL syringe and an 18-gauge needle, the superior aspect of the hemiscrotum was punctured and aspiration of dark bloody fluid was noted. Notably, it was more turbid and opaque than on previous aspiration episode, suggestive of infection. Once 50 mL was aspirated, syringe was sent for Gram stain and culture. Subsequently, seroma catheter was advanced into this area and attached to tubing and draining the additional fluid, 2 bulbs in aggregate were drained. When drainage diminished in output, the catheter was then secured to the skin of the hemiscrotum with a 2-0 nylon suture. Gauze dressing was applied as was tape. PLAN: He will remain off his Eliquis at this time and will then present to the hospital tomorrow where we will evaluate his progress or lack thereof. By remaining off Eliquis, he will be a candidate for a more aggressive surgical intervention if necessary. We will start him on Augmentin 500 mg p.o. t.i.d. today. Additionally wrote, pain medication of Percocet 7.5/325, 1 to 2 p.o. q.6 hours p.r.n. pain #12. If he is much improved tomorrow, he may not need to proceed with a more formal operative drainage. However, if not, then it would be advisable. I have discussed this with the patient as well as his [id number], they understand. Electronically Signed By: YANDY DIMAS MD 02/22/21 1602 PATIENT NAME: KORTNEY TURK OPERATIVE REPORT DATE OF : 39 REPORT #: [id number] PHYSICIAN: YANDY DIMAS MD PCP: MARY DAVIS MD REPORT IS CONFIDENTIAL AND NOT TO BE RELEASED WITHOUT AUTHORIZATION [facility] [address] [place] [place] [address] Signed Yandy Dimas MD /DOTL /[id number] cc: Mary Davis MD Copies: MARY DAVIS MD ~ Electronically Signed By: YANDY DIMAS MD 02/22/21 1602 PATIENT NAME: KORTNEY TURK OPERATIVE REPORT DATE OF : 39 REPORT #: [id number] PHYSICIAN: YANDY DIMAS MD PCP: MARY DAVIS MD REPORT IS CONFIDENTIAL AND NOT TO BE RELEASED WITHOUT AUTHORIZATION
== END 2021-02-20 10:15 | disposition home or self-care (01) ==
LOC: OPS 05:50 → DS 05:50 → OPS 07:30
PROVIDERS: ATTEND Surgery
PROC: 0V9530Z Drainage of Scrotum with Drainage Device, Percutaneous Approach (ICD-10-PCS; principal; 2021-02-20 07:30)
DX: L76.34 Postprocedural seroma of skin and subcutaneous tissue following other procedure (principal); Y83.8 Other surgical procedures as the cause of abnormal reaction of the patient, or of later complication, without mention of misadventure at the time of the procedure; Z79.01 Long term (current) use of anticoagulants; Z88.5 Allergy status to narcotic agent; Z79.1 Long term (current) use of non-steroidal anti-inflammatories (NSAID); Z79.899 Other long term (current) drug therapy; Z98.890 Other specified postprocedural states; Z20.822 Contact with and (suspected) exposure to COVID-19
CPT/HCPCS: 80053; 85025; 93005; 93010; C1729; U0003

== ENCOUNTER 2022-01-17 20:49 | Emergency (ER) | payer MEDICARE, OTHER ==
[~2022-01-17] VITALS: Ht 172.7 cm; Wt 67.1 kg
[~2022-01-17 20:49] MED LIST changes: +ELIQUIS5 MG PO; +KAPSPARGO SPRIN25 MG PO; +NITROGLYCERIN0.4 MG SL; +PERCOCET 5-3251 EACH PO
--- NOTE | 2022-01-18 08:02 | EKG ---
[facility] [address] [facility] [place], [place] [address] Signed Atrial flutter with 4:[address] elevation, consider lateral injury or acute infarct Prolonged QT ACUTE TN / STEMI Abnormal ECG No previous ECGs available Confirmed by KYLE MATTA MD ([id number]) on 01/18/2022 8:01:52 AM Electronically Signed By: KYLE MATTA MD 01/18/22 0802 PATIENT NAME: KORTNEY TURK Electrocardiogram DATE OF : 39 PHYSICIAN: KYLE MATTA MD REPORT #: [id number] REPORT IS CONFIDENTIAL AND NOT TO BE RELEASED WITHOUT AUTHORIZATION
== END 2022-01-17 23:56 | disposition home or self-care (01) ==
LOC: ED 20:49
DX: E86.0 Dehydration (principal); R55 Syncope and collapse; I25.10 Atherosclerotic heart disease of native coronary artery without angina pectoris; E78.5 Hyperlipidemia, unspecified; Z88.5 Allergy status to narcotic agent; Z91.018 Allergy to other foods; Z88.8 Allergy status to other drugs, medicaments and biological substances; Z79.899 Other long term (current) drug therapy; Z79.01 Long term (current) use of anticoagulants; Z20.822 Contact with and (suspected) exposure to COVID-19
CPT/HCPCS: 36415; 71045; 80048; 83880; 84484; 85025; 93005; 93010; 99284-25; C9803; J7040; U0003

== ENCOUNTER 2023-03-02 18:52 | Observation (INO) | payer MEDICARE, OTHER ==
[~2023-03-02] VITALS: Ht 172.7 cm; Wt 68.2 kg
[2023-03-02] MEDS ORDERED: ATORVASTATIN CA40 MG PO (19:56)
[2023-03-02 22:32] VITALS: BP 163/70
--- NOTE | 2023-03-02 23:42 | NUR ---
PATIENT USED THE CALL LIGHT. PATIENT HAVE A HARD OF HEARING. ASSISTED PATIENT USE THE URINAL. PATIENT STOOD UP BY THE BED WITH WALKER. PATIENT IS VERY CAREFUL IN STANDING UP STATED "I HAVE A BALANCE PROBLEM". PATIENT VOIDED 380ML LIGHT CLEAR URINE. PATIENT IS BACK IN BED. ALARM ON FOR SAFETY.
--- NOTE | 2023-03-03 00:16 | NUR ---
PATIENT ADMITTED FROM ER WITH DIZZINESS. REPORT RECEIVED LUCIA CLEMENTS AT PATIENT BEDSIDE. PATIENT ALERT AND ORIENTED. IVF INITIATED PER ORDER. PATIENT AMBULATES X1 ASSIST WITH WALKER. PATIENT NEEDS EDUCATION AND TEACHING INSTRUCTION ON REASON AND USE OF WALKER. PATIENT NEEDING TO VOID FREQUENTLY, WITH LARGE OUTPUT EVERY VOID. PATIENT VERBALIZED UNDERSTANDING ON CALLING FOR HELP WITH AMBULATION. SKIN INTACT WITH SECOND RN VERIFICATION (LUCIA HAMEED). CALL LIGHT WITHIN REACH. WILL CONTINUE TO MONITOR.
--- NOTE | 2023-03-03 00:28 | NUR ---
PATIENT USED THE CALL LIGHT. PATIENT USED THE URINAL WHILE LAYING DOWN. THIS FAMILY SERVICES SPECIALIST ASSISTED HOLDING THE URINAL NOT TO OVERFLOW. BUCKET PROVIDED TO PLACE TO PLACE THE URINAL SAFE. BABY WIPES PROVIDED. BED ALARM REMAINED ON.
--- NOTE | 2023-03-03 00:51 | NUR ---
PATIENT RESTING IN BED WITH EYES CLOSED. NO DISTRESS OR DISCOMFORT NOTED. SAFETY PRECAUTIONS MAINTIANE. CALL LIGHT WITHIN REACH. WILL CONTINUE TO MONITOR.
[2023-03-03 06:00] VITALS: BP 145/85
--- NOTE | 2023-03-03 06:02 | NUR ---
[facility] DOWNTIME. SEE PAPER CHARTING FOR ASSESSMENT THAT WAS COMPLETED AT 0240.
--- NOTE | 2023-03-03 06:03 | NUR ---
PATIENT RESTED SOME DURING THE SHIF. PT HAD TO GET UP FREQUENTLY TO VOID IN URINAL. PT VOIDED 1600ML SINCE ADMISSION. VS STABLE. PT STATES THAT THEY HAVE A LITTLE PAIN ON LEFT SIDE OF FACE DUE TO LARGE BRUISE FROM A PREVIOUS FALL. SAFETY PRECAUTIONS MAINTAINED. CALL LIGHT WITHIN REACH. WILL CONTINUE TO MONIOTR.
--- NOTE | 2023-03-03 08:30 | NUR ---
REPORT RECEIVED FROM NIGHT AND PT. CARE RESUMED. PT. IS [place] AND BROUGHT A MICROPHONE HEADSET AND ABLE TO HEAR. ORIENTED TO SELF AND PLACE. DENIES PAIN. ASSESSMENT COMPLETED. DAUGHTER IN LAW AT BEDSIDE. MEDS ADMIN. DISCUSSED POC AND SAFETY. CALL LIGHT IN REACH.
--- NOTE | 2023-03-03 08:45 | NUR ---
PATIENT AWAKE IN BED, FINISHING BREAKFAST, DIL AT BEDSIDE, ASSISTING. WASHCLOTH PROVIDED FOR FACE AND HANDS. URINAL EMPTIED AND IN CLOSE REACH
[2023-03-03 09:07] VITALS: BP 112/57
--- NOTE | 2023-03-03 10:50 | NUR ---
PATIENT PLANS TO GO HOME TO HIS HOUSE. PATIENT'S FAMILY WILL STAY WITH PATIENT IF NEEDED. GRANDSON ALSO LIVES NEXT DOOR AND CAN HELP IF NEEDED. PATIENT HAS HAD MILD CONFUSION AND DIZZINESS WHICH IS NOT NORMAL FOR THE PATIENT. PATIENT DOES NOT USE DME. PATIENT HAS GRAB BARS IN THE BATHROOM. THE DAUGHTER [place] IS THE PATIENT'S CAREGIVER NEEDED. DEMOGRAPHICS ARE CORRECT IN THE MEDICAL RECORD.PATIENT DOES NOT DRIVE. PATIENT CAN TAKE CARE OF HIS ADLS AND FAMLY IS AVAILABLE TO HELP WHEN NEEDED.PATIENT HAS HIS OWN HOUSE AND NO FOOD INSECURITIES.PATIENT'S FAMILY WILL TAKE CARE OF THE PATIENT'S NEEDS AND WILL NOTIFY CM IF HELP IS NEEDED TO SUPPORT THE DISCHARGE PLAN.
[2023-03-03 11:16] VITALS: BP 132/66
--- NOTE | 2023-03-03 11:29 | NUR ---
PATIENT UP TO BR WITH 1PA AND FWW/GAITBELT. PATIENT TOLERATED WELL, NO DIZZINESS. DIL IN ROOM. LINEN CHANGED.
--- NOTE | 2023-03-03 11:42 | NUR ---
THIS RN TO ROOM TO ASSIST WITH AMBULATING PT TO ASSESS STRENGTH AND MOBILITY. PTS [id number] AT BEDSIDE AND STATES "NO, YOU CAN'T GET HIM UP, HE CANT EVEN GET UP TO THE BATHROOM WITH 2 PEOPLE HELPING." BMAT ASSESSMENT DONE AND PT IS EASILY BMAT LEVEL 3. PT SITS UP QUICKLY ON EDGE OF BED WITH NO ASSISTANCE. PT DENIES DIZZINESS. PT STANDS WITH NO ASSISTANCE AND WITHOUT THE NEED FOR THE BED TO BE RAISED. GATE BELT PLACED FOR SAFETY. PT UP TO RESTROOM WITH STAND BY ASSIST AND FWW FOR SAFETY. PT HAS LARGE SOFT/FORMED BOWEL MOVEMENT. KEVON CARE PER PT. UNDERWARE PLACED BY PT WITH NO ASSISTANCE. PT UP TO AMBULATE IN DEE WITH STAND BY ASSIST AND FWW X1 LAP. PT STEADY ON FEET AND DENIES DIZZINESS. PT REPORTS "I CAN'T BELIEVE I'M SO MUCH BETTER SO FAST." PT REPORTS HE DOES NOT USE A WALKER AT HOME AND DOESN'T WANT TO. PT AMBULATES AN ADDITIONAL LAP WITHOUT THE WALKER. CONTINUES TO BE STEADY ON FEET WITH STAND BY ASSIST. PT BACK TO ROOM AND UP TO THE CHAIR. PT DENIES DIZZINESS. PT DENIES ADDITIONAL REQUESTS OR COMPLAINTS. CALL LIGHT WITHIN REACH. [id number] AT BEDSIDE. PTS PRIMARY RN AND CHARGE NURSE UPDATED.
--- NOTE | 2023-03-03 12:16 | NUR ---
PT RESTING IN BED WITH DAUGHTER IN LAW AT BS. PT SEEMS TO BE [place], MILD CONFUSION. BUT HE DID REMEMBER I VISITED HIM ON A PREVIOUS ADMISSION. PT HAS HAD HIS BRUNSON FROM HIS MANDAEISM VISIT. HAD PRAYER WITH PT, GAVE G.POST D.I.L WILL READ TO PT. GAVE RADHA AND WILL FOLLOW
[2023-03-03 13:46] VITALS: BP 118/59
--- NOTE | 2023-03-03 14:00 | NUR ---
ALL DISCHARGE INSTRUCTIONS REVIEWED WITH PT. AND DAUGHTER AND QUESTIONS ANSWERED.
--- NOTE | 2023-03-04 18:05 | EKG ---
[facility] [address] [place] [address] Signed Atrial flutter with variable AV block Incomplete right bundle branch block Nonspecific ST abnormality Abnormal ECG When compared with ECG of 17-JAN-2022 21:17, ST less depressed in Inferior leads T wave inversion less evident in Inferior leads T wave inversion no longer evident in Lateral leads Confirmed by MAYUR SOLIZ MD ([id number]) on 03/04/2023 6:05:32 PM Electronically Signed By: MAYUR SOLIZ MD 03/04/23 1805 PATIENT NAME: KORTNEY TURK Electrocardiogram DATE OF : 39 PHYSICIAN: MAYUR SOLIZ MD REPORT #: [id number] REPORT IS CONFIDENTIAL AND NOT TO BE RELEASED WITHOUT AUTHORIZATION
== END 2023-03-03 14:00 | disposition home or self-care (01) ==
LOC: ED 18:52 → MS 18:54
PROVIDERS: ADMIT Internal Medicine; ATTEND Internal Medicine
DX: E87.1 Hypo-osmolality and hyponatremia (principal); G31.84 Mild cognitive impairment of uncertain or unknown etiology; I25.10 Atherosclerotic heart disease of native coronary artery without angina pectoris; E78.5 Hyperlipidemia, unspecified; I48.20 Chronic atrial fibrillation, unspecified; H91.13 Presbycusis, bilateral; Z79.01 Long term (current) use of anticoagulants; Z95.1 Presence of aortocoronary bypass graft
CPT/HCPCS: 36415; 70450; 70496; 70498; 71045; 80048; 80053; 82533; 83880; 84443; 84484; 84550; 85025; 85610; 85730; 93005; 93010; 99285-25; A9270; G0378; J7131; Q9967